=== PATIENT | male | born 1945 | race Two or more races ===

== ENCOUNTER 2023-12-25 11:43 | Emergency (ER) | payer MEDICARE, SELFPAY ==
--- NOTE | ~2023-12-25 | XR_ITS ---
EXAMINATION: XR LUMBOSACRAL SPINE CLINICAL INFORMATION: Low back pain COMPARISON: None available. TECHNIQUE: Three views of the lumbosacral spine. FINDINGS: There are 5 nonrib-bearing lumbar type vertebra. No evidence of acute fracture or malalignment. Straightening of usual lumbar lordosis. Vertebral body heights are maintained. Multilevel degenerative disc space height loss, moderate at L4-5 and mild at L3-4. Mild mid/lower lumbar facet arthropathy. Soft tissues are unremarkable. XR/XR lumbar spine 2-3V IMPRESSION: Mild to moderate multilevel degenerative lumbar spondylosis, most pronounced at L4-5. Electronically signed by: Kishan Henry MD 12/25/2023 02:04 PM EDT RP
--- NOTE | ~2023-12-25 | XR_ITS ---
EXAMINATION: XR ABDOMEN KUB CLINICAL INDICATION: Constipation, pain COMPARISON: None available. TECHNIQUE: AP view of the abdomen. FINDINGS: The bowel gas pattern is normal with no evidence of ileus or obstruction. Moderate a large colonic stool burden. No unusual soft tissue calcifications are noted. Metallic fiducial markers overlie the lower pelvis. XR/XR KUB IMPRESSION: Nonobstructive bowel gas pattern with moderate to large colonic stool burden. Electronically signed by: Kishan Henry MD 12/25/2023 02:06 PM EDT
[2023-12-25 11:53] VITALS: BP 114/67; PULSE 49; RESP 16; TEMP 35.9; O2SAT 97; BMI 25.8
--- NOTE | 2023-12-25 11:58 | ED_ITS ---
HPI - General Adult General Chief complaint: General Medical Stated complaint: pain in back Time Seen by Provider: 12/25/23 12:08 Source: patient, family, RN notes reviewed and old records reviewed Mode of arrival: ambulatory History of Present Illness ED Provider: Marta Roach PA-C HPI narrative: 78-year-old male with no significant past medical history presenting to ED with complaining of low back pain and bloody/dark/black stools x 1 month. Recently tested positive for Lyme disease, currently on Doxycycline reports mild constipation last BM this AM. Reports mild lightheadedness. Denies known back injury, trauma or fall, incontinence/retention, hematuria, dysuria, flank pain, abdominal pain, nausea/vomiting, fever. Denies taking anticoagulation Related Data Previous Rx's ?Medication ?Instructions ?Recorded acetaminophen 500 mg tablet 500 mg PO Q6H PRN fever or pain 12/25/23 (Tylenol Extra Strength) #14 tabs cyclobenzaprine 5 mg tablet 5 mg PO Q8H PRN pain (scale score 12/25/23 7-10) 5 days #14 tabs lidocaine 5 % topical patch 1 patch topical DAILY PRN pain #30 12/25/23 (Lidoderm) ea Allergies Allergy/AdvReac Type Severity Reaction Status Date / Time No Known Allergies Allergy Verified 12/25/23 11:58 Review of Systems 2 Review of Systems: Yes all other systems are reviewed and are negative Constitutional: Constitutional: Reports as per HPI Neurologic: Denies Sensory deficit (Neuro) [facility] Past Medical History Attestation statement: The following information was validated with the patient. Source: old records reviewed Social History Social History Advance Directives: No Advance Directives Information Provided: No Physical Exam ED Vital Signs: Vital Signs - 24 hr 12/25/23 11:53 12/25/23 14:54 12/25/23 15:16 Temperature 96.7 F L 97.6 F 97.6 F Pulse Rate 49 L 41 L 41 L Respiratory Rate 16 16 16 Blood Pressure 114/67 131/63 131/63 Pulse Oximetry 97 94 94 Oxygen Delivery Method Room Air Room Air BMI result Body Mass Index 25.8 Const General: cooperative, healthy appearing and no acute distress Orientation/consciousness: patient oriented x3 Limitations: no limitations HENMT Head: Yes normal to inspection and Yes atraumatic Ears: hearing grossly normal bilaterally General nose exam: Normal external nose present Face and sinus: Yes normal facial exam Eyes General: appearance normal, both eyes and all related structures EOM: EOMs intact bilaterally Neck Neck: Yes normal visual inspection and Yes no meningeal signs Resp Effort & Inspection: normal respiratory effort and no respiratory distress Cardio Rate: regular rate GI Inspection: Yes normal to inspection Palpation (GI): Soft to palpation, nontender, no guarding and not rigid Rectal Exam - Male: Yes visual inspection normal General: Yes no CVA tenderness Back/Spine/Pelvis Other: No midline cervical/thoracic/lumbar spinous tenderness/step-off or deformity. + bilateral lower lumbar MSK reproducible tenderness. No rash/erythema or ecchymosis Back: no CVA tenderness Skin Rashes: no rashes Wounds: no wounds Neuro Other: Strength intact throughout. No saddle anesthesia. Sensation intact to light touch. Neurovascular intact distally General: patient oriented x3, gait normal, tone normal, moves all extremities, no meningeal signs and no focal motor deficits Cranial nerves: Yes CN's II-XII intact bilaterally Gait exam (Neuro): Normal gait present Motor exam (neuro): 5/5 motor strength present throughout Sensory Exam: No Sensory deficit (Neuro) Extrem General: Yes normal to inspection Course Course Course Narrative: RME performed by Carol Estrada PA-C. Patient is a 78 year old assigned male at presenting to the emergency department with low back pain. Patient states that he has been having low back pain, currently on doxy for lyme. Detailed physical exam and review of systems are deferred to the stone layout marker. Labs ordered. Patient placed back in the waiting room pending room availability and results. -1340--BUN elevated to 25, no priors to compare -UA negative. Occult stool negative -viral studies negative XR KUB IMPRESSION: Nonobstructive bowel gas pattern with moderate to large colonic stool burden. XR lumbar spine 2-3V IMPRESSION: Mild to moderate multilevel degenerative lumbar spondylosis, most pronounced at L4-5. > Results discussed with patient including worrisome signs and symptoms and strict return precautions, and when to return to the emergency department. They verbalized understanding and feel safe for discharge at this time. Medications Administered Discontinued Medications Generic Name Dose Route Start Last Admin Trade Name Freq PRN Reason Stop Dose Admin Polyethylene Glycol 17 gm 12/25/23 14:30 12/25/23 14:50 Polyethylene Glycol 3350 17 Gm Powd.Pack PO 12/25/23 14:31 17 gm ONCE ONE Administration Medical Decision Making Medical Decision Making [facility] Narrative: 78-year-old male with no significant past medical history presenting to ED with complaining of low back pain and bloody/dark/black stools x 1 month. On exam vital signs stable, NAD, nontoxic appearing, abdomen soft/nontender, brown stool noted on rectal. No midline spinous tenderness or red flag symptoms. Ambulating with steady gait. Concern for GI bleed vs hemorrhoids vs MSK back pain/strain. Rule out anemia. Low suspicion for appendicitis/diverticulitis, epidural abscess, cauda equina/cord compression or fracture. Lower suspicion for SBO Plan: Labs, UA, occult stool, pain control Please refer to course for remaining clinical decision making, interpretation of labs/imaging results, and discussions with consultants and/or family members. Differential Diagnosis Differential Diagnoses: The differential diagnosis associated with the presentation includes As above Admission/Observation Consideration of admission/observation: Escalation of care including admission/observation considered Lab Data [facility] Lab Attestation statement: I reviewed the patient's lab results. 12/25/23 12:07 12/25/23 12:07 Labs: Lab Results 12/25/23 12/25/23 12/25/23 Range/Units 12:07 13:14 13:16 WBC 7.0 (4.8-10.8) X10*3/uL RBC 4.87 (4.60-5.80) X10*6/uL Hgb 14.1 (14.0-18.0) g/dl Hct 42.5 (42.0-52.0) % MCV 87.3 (80.0-98.0) fL MCH 29.0 (27.0-33.0) pg MCHC 33.2 (31.0-36.0) g/dl RDW 13.2 (11.0-16.0) % Plt Count 300 (160-400) X10*3/uL MPV 10.1 (9.4-12.4) fL Immature Gran % (Auto) 0.1 (0.0-0.4) % Neut % (Auto) 60.9 (45-73) % Lymph % (Auto) 25.9 (20-40) % [place] % (Auto) 9.8 (2-11) % Eos % (Auto) 2.6 (0-4) % Baso % (Auto) 0.7 (0-2) % Lymph # (Auto) 1.8 (1.2-4.9) X10*3/uL [place] # (Auto) 0.7 (0.1-1.2) X10*3/uL Eos # (Auto) 0.2 (0.0-0.4) X10*3/uL Baso # (Auto) 0.1 (0.0-0.2) X10*3/uL Abs Immat Gran (auto) 0.01 (0.00-0.03) X10*3/uL Absolute Neuts (auto) 4.3 (2.0-8.3) x10*3/uL Absolute Nucleated RBC 0.000 (0.0-0.012) X10*3/uL Nucleated RBC % (auto) 0.0 (0.0-0.2) /100WBC Sodium 140 (135-145) mmol/L Potassium 4.5 (3.3-5.1) mmol/L Chloride 107 (96-108) mmol/L Carbon Dioxide 24 (22-29) mmol/L Anion Gap 14 (12-20) BUN 25 H (9-16) mg/dL Creatinine 0.94 (0.5-1.4) mg/dL Estim Creat Clear Calc 62.5 Estimated GFR > 60 Random Glucose 103 (60-115) mg/dL Calcium 9.7 (8.4-10.2) mg/dL Magnesium 2.2 (1.6-2.6) mg/dL Total Bilirubin 0.9 (0.0-1.0) mg/dL AST 24 (5-37) U/L ALT 30 (0-40) U/L Alkaline Phosphatase 79 (39-117) U/L Total Protein 6.9 (6.5-8.0) g/dL Albumin 4.1 (3.5-5.0) g/dL Lipase 36 (8-78) U/L Urine Color Yellow Urine Appearance Clear Urine pH 6.5 (5.0-9.0) Ur Specific [place] 1.015 (1.005-1.025) Urine Protein Negative (Neg-Trace) mg/dL Urine Glucose (UA) Negative (Negative) mg/dL Urine Ketones Negative (Negative) mg/dL Urine Blood Negative (Negative) Urine Nitrite Negative (Negative) Ur Leukocyte Esterase Negative (Negative) Stool Occult Blood NEGATIVE (NEGATIVE) Influenza Type A (PCR) NEGATIVE (Negative) Influenza Type B (PCR) NEGATIVE (Negative) RSV RNA Qual (PCR) NEGATIVE (Negative) SARS-CoV-2 RNA (RT-PCR) NEGATIVE (Negative) Radiology Impression Discussion of test interpretation with radiology: I have reviewed the radiologist's reading. Independent Historian Clinical information obtained from an independent historian. History obtained from or confirmed by: Spouse External Record Review External record reviewed: Inpatient record, Office record, Outpatient record, Prior outpatient labs, Prior outpatient radiology, Primary care record and Outside ED record Tests considered The following testing was considered but not selected: As above Prescription Management I considered prescription management with: Pain Medication Chronic Conditions Patient?s care impacted by: Other Discharge Plan Discharge Clinical Impression: Constipation, DDD (degenerative disc disease), lumbar Patient Disposition: Home, Self-Care Instructions: Constipation (DC), Back Pain (ED) Additional Instructions: Your x-ray shows some constipation. No obstruction You also have some degenerative changes of your low back Your blood work is reassuring, your stool was negative for blood you tested negative for COVID, flu, RSV Flexeril is a muscle relaxer, take at night as it makes you drowsy, do not drive, drink alcohol, or operate machinery while taking it Lidoderm patches are numbing patches, apply to painful area In addition take Tylenol at home If symptoms persist or worsen, pain becomes unbearable, you developed urinary retention or incontinence, or weakness return to the ED PLEASE FOLLOW-UP WITH GASTROENTEROLOGY, CALL TO MAKE AN APPOINTMENT Prescriptions: New lidocaine [Lidoderm] 5 % adhesive patch,medicated 1 patch topical DAILY MDD remove after 12 hours PRN (Reason: pain) Qty: 30 0RF Rx Instructions: leave on most painful area for up to 12 hrs cyclobenzaprine 5 mg tablet 5 mg PO Q8H PRN (Reason: pain (scale score 7-10)) 5 Days Qty: 14 0RF acetaminophen [Tylenol Extra Strength] 500 mg tablet 500 mg PO Q6H PRN (Reason: fever or pain) Qty: 14 0RF Referrals: [facility] [Provider Group] Physician,Unknown J [Primary Care Provider] - Interventions: ED Discharge Assessment Last Done: 12/25/23 15:16 Discharge Date/Time: 12/25/23 15:16 Print Language: Urdu
[2023-12-25 12:11] LABS: MANUAL DIFF FLAG NO
[2023-12-25 12:12] LABS: Basophils Absolute Auto 0.1 X10*3/uL (0.0-0.2); Basophils Percent Auto 0.7 % (0-2); Eosinophils Absolute Auto 0.2 X10*3/uL (0.0-0.4); Eosinophils Percent Auto 2.6 % (0-4); Hematocrit 42.5 % (42.0-52.0); Hemoglobin 14.1 g/dl (14.0-18.0); Imm Gran Abs Auto 0.01 X10*3/uL (0.00-0.03); Imm Gran Pct Auto 0.1 % (0.0-0.4); Lymphocytes Absolute Auto 1.8 X10*3/uL (1.2-4.9); Lymphocytes Percent Auto 25.9 % (20-40); Mean Corpuscular HGB Conc 33.2 g/dl (31.0-36.0); Mean Corpuscular Volume 87.3 fL (80.0-98.0); Mean Platelet Volume 10.1 fL (9.4-12.4); Monocytes Absolute Auto 0.7 X10*3/uL (0.1-1.2); Monocytes Percent Auto 9.8 % (2-11); Neutrophils Absolute Auto 4.3 x10*3/uL (2.0-8.3); Neutrophils Percent Auto 60.9 % (45-73); Platelet Count 300 X10*3/uL (160-400); Red Blood Count 4.87 X10*6/uL (4.60-5.80); Red Cell Distribution Width 13.2 % (11.0-16.0)
[2023-12-25 12:28] LABS: Alanine Aminotransferase 30 U/L (0-40); Albumin Level 4.1 g/dL (3.5-5.0); Alkaline Phosphatase 79 U/L (39-117); Anion Gap 14 (12-20); Aspartate Amino Transferase 24 U/L (5-37); Bilirubin Total 0.9 mg/dL (0.0-1.0); Blood Urea Nitrogen 25 mg/dL (9-16); Calcium 9.7 mg/dL (8.4-10.2); Carbon Dioxide 24 mmol/L (22-29); Chloride 107 mmol/L (96-108); Creatinine Clr Calc Pharmacy 62.5; Estimated Glomerular Filt Rate > 60; Glucose Random 103 mg/dL (60-115); Magnesium 2.2 mg/dL (1.6-2.6); Potassium 4.5 mmol/L (3.3-5.1); Sodium 140 mmol/L (135-145); Total Protein 6.9 g/dL (6.5-8.0)
[2023-12-25 12:55] LABS: Influenza A PCR NEGATIVE (Negative); Influenza B PCR NEGATIVE (Negative); Resp Syncy Virus RNA Qual PCR NEGATIVE (Negative); SARS COV2 PCR INHOUSE NEGATIVE (Negative)
[2023-12-25 13:16] LABS: Lipase 36 U/L (8-78)
[2023-12-25 13:23] LABS: Appearance Urine Clear; Color Urine Yellow; Glucose Urine UA Negative (Negative); Leukocyte Esterase Urine Negative (Negative); Nitrite Urine Negative (Negative); PH 6.5 (5.0-9.0); Specific Gravity - Urine 1.015 (1.005-1.025); Urine Blood Negative (Negative); Urine Ketones Negative (Negative); Urine Protein Negative (Neg-Trace)
[2023-12-25 13:26] LABS: OBS Int Ctl Valid YES; OBS1 NEGATIVE (NEGATIVE)
[2023-12-25] MEDS: polyethylene glycoL 3350 17 GM POWD.PACK PO (14:50)
[2023-12-25 14:54] VITALS: BP 131/63; PULSE 41; RESP 16; TEMP 36.4; O2SAT 94
[2023-12-25 15:16] VITALS: BP 131/63; PULSE 41; RESP 16; TEMP 36.4; O2SAT 94
== END 2023-12-25 15:16 | disposition home or self-care (01) ==
PROVIDERS: Physician Assistant; Physician Assistant Medical; Emergency Provider Emergency Medicine Emergency Medical Services
DX: K59.09 Other constipation (principal); M51.36 Other intervertebral disc degeneration, lumbar region; Z03.818 Encounter for observation for suspected exposure to other biological agents ruled out; M54.50 Low back pain, unspecified
CPT/HCPCS: 0241U; 72100; 74018; 80053; 81003; 82272; 83690; 83735; 85025; 99283

== ENCOUNTER 2024-01-20 09:54 | Outpatient (AMB) | payer MEDICARE, SELFPAY ==
--- NOTE | 2024-01-20 09:56 | MHC.OFFVIS ---
Vital Signs 01/20/24 10:06 Height 5 ft 7 in Weight 164 lb 4 oz BMI 25.7 BP 150/72 H Blood Pressure Location Lt brachial Position Sitting Respiration 16 Pulse 48 L Pulse Source Pulse Oximeter Pulse Oximetry (%) 98 Oxygen Delivery Method Room Air Intake Visit Reasons: Back and Knee Pain Intake Note: Patient comes in for initial visit was referred by [facility]. Reports pain 6-7/10. Wet Room Worker Required: Yes Wet Room Worker Services: Wet Room Worker Present Accompanied by: Spouse Allergies No Known Allergies Allergy (Verified 01/20/24 10:05) HPI Comments Details: Rodriguez is very pleasant 78 years old gentleman with minimal understanding of Faroese but mostly Afghan-speaking who presented himself today with complains on pain in the back. He reported this pain started 8 months ago. 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 He reported that he has his pain 8/10 today he reports that seeing backwards hurts more than flexing forward. The most severe pain he has when he is trying to position him self flattened bed. However he reports that he can function normally, can take care for himself, can do activities of daily living, and he can not sleep normally. He reports that the best he feels when he is reclined in bed and resting. 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 Heavy lifting and bending aggravate his pain tremendously and when his pain is very severe and he is desperate he is taking Tylenol. He reports that he does not want to take any pain medications. He had an MRI with [facility] which is not available for my review for today. He never had physical therapy he never had any chiropractic manipulations he never had any injections. His past medical history is significant for prostate problems and history of alcohol abuse 23 years ago he is sober for 23 years. He took for his pain Tylenol only as needed and he never took NSAIDs because he has reported constipation and red blood in the stool. He has an appointment with automotive tire testing supervisor, he probably had colonoscopy 5 years ago, he most likely is due for the colonoscopy again.Past surgical history significant for hernia repair in 2012. He also has a history of amputation of the left great toe secondary to heavy machinery fallen on his extremity. 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 Review of Systems Const All systems reviewed & are unremarkable except as noted in HPI and below ENT Reports Normal hearing present Neuro Reports Normal hearing present, Denies Abnormal speech present and Denies Sensory deficit (Neuro) Physical Exam Vital Signs: Last Vital Signs Pulse 48 L 01/20/24 10:06 Resp 16 01/20/24 10:06 BP 150/72 H 01/20/24 10:06 Pulse Ox 98 01/20/24 10:06 Oxygen Delivery Method Room Air 01/20/24 10:06 BMI result Body Mass Index 25.7 Const General: no acute distress Nutritional Appearance: average body habitus and thin Orientation/consciousness: patient oriented x3 Limitations: language barrier Eyes General: appearance normal, both eyes and all related structures Pupils: Equal, round and reactive pupils present EOM: EOMs intact bilaterally Neck Neck: Yes full ROM Chest Chest palpation & inspection: normal inspection of the chest Resp Effort & Inspection: normal respiratory effort, able to speak in complete sentences, normal respiratory pattern, no audible wheezes and no cough Cardio Jugular venous distension: no JVD GI Inspection: Yes normal to inspection Back/Spine/Pelvis Other: Due to trauma on the left toe unable to stand on the tiptoes so the strength of the bilateral lower extremities were examined while patient is sitting. He exhibits normal very good strength foot dorsiflexion and forward flexion knee flexion and extension as well as hip flexion without any difficulty. He denies any numbness or tingling in bilateral lower extremities. He reports flexing forward aggravates his pain but flexing backwards aggravate his pain the most. Flexing sideways does not aggravate his pain. SLR is negative bilaterally. Stinchfield test is positive on the left. Greg test is positive on the left. Pelvic distraction test is positive on the left. Gaenslen test is positive on the left. SLR is negative bilaterally. Tenderness on palpation in projection of the left sacroiliac joint. No tenderness on palpation in projection of the lumbar spine. No tenderness on palpation in the projection of the sacral bone. No paraspinal tenderness on palpation noted. Neuro General: patient oriented x3 and gait normal Cranial nerves: Yes CN's II-XII intact bilaterally, Yes Equal, round and reactive pupils present, Yes Normal hearing present and Yes Ability to bilaterally elevate shoulders present Speech: No Abnormal speech present Gait exam (Neuro): Normal gait present Motor exam (neuro): 5/5 motor strength present throughout Sensory Exam: No Sensory deficit (Neuro) Extrem General: No pedal edema Psych Speech and movement: Normal speech and movement present Affect: normal affect Attitude: cooperative Thought process: Normal thought process present Thought content: Normal thought content present Insight: Good insight present (Psych) Judgement: Good judgement present (Psych) Assessment & Plan Assessment & Plan (1) Chronic left sacroiliac joint pain: Code(s): M53.3 - Sacrococcygeal disorders, not elsewhere classified; G89.29 - Other chronic pain Category: Medical (2) Sacroiliitis: Code(s): M46.1 - Sacroiliitis, not elsewhere classified Category: Medical (3) Chronic pain syndrome: Code(s): G89.4 - Chronic pain syndrome Category: Medical Plan Mr. Herself Tobin seem to be suffering from left sacroiliac joint pain. Unfortunately he never had any conservative measures to treat his pain. He took Tylenol only as needed and he never took NSAIDs because he has reported constipation and red blood in the stool. He has an appointment with automotive tire testing supervisor, he probably had colonoscopy 5 years ago, he most likely is due for the colonoscopy again. At this time I recommend him to do physical therapy and continued Tylenol. I will see him in 6 weeks in follow-up appointment. We will have him to sign medical information release note and we will obtain MRI report of the lumbar spine however I think the main problem is sacroiliitis. If the patient will not receive any help from physical therapy I will offer him therapeutic sacroiliac joint injection on the left. Patient Instructions: I here by testify that I spent 45 minutes in conversation with this patient as well as planning his care organizing this note. steam press tender online [id number] helped us to maintain conversation in Afghan. Coding Level of Care Code New Pt Level 4 (91285) Diagnoses Chronic left sacroiliac joint pain M53.3; G89.29 Sacroiliitis M46.1 Chronic pain syndrome G89.4
[2024-01-20 10:06] VITALS: BP 150/72; PULSE 48; RESP 16; O2SAT 98; BMI 25.7
== END 2024-01-20 10:53 | disposition home or self-care (01) ==
PROVIDERS: PCP Physician Assistant Medical; Visit Provider Anesthesiology
DX: M53.3 Sacrococcygeal disorders, not elsewhere classified (principal); G89.29 Other chronic pain; M46.1 Sacroiliitis, not elsewhere classified; G89.4 Chronic pain syndrome
CPT/HCPCS: 99204

== ENCOUNTER → 2024-01-20 09:54 | Outpatient (BNVA) | payer MEDICARE, SELFPAY | PROVIDERS: PCP Physician Assistant Medical; Visit Provider Anesthesiology | DX: M53.3 Sacrococcygeal disorders, not elsewhere classified (principal); M46.1 Sacroiliitis, not elsewhere classified; G89.29 Other chronic pain | CPT/HCPCS: 99202 ==

== ENCOUNTER 2024-03-15 10:43 | Outpatient (REF) | payer MEDICAID, SELFPAY ==
[2024-03-15 12:18] LABS: Anion Gap 14 (12-20); Blood Urea Nitrogen 23 mg/dL (9-16); Calcium 9.5 mg/dL (8.4-10.2); Carbon Dioxide 23 mmol/L (22-29); Chloride 108 mmol/L (96-108); Estimated Glomerular Filt Rate > 60; Glucose Random 100 mg/dL (60-115); Potassium 4.6 mmol/L (3.3-5.1); Sodium 140 mmol/L (135-145)
[2024-03-15 12:36] LABS: TSH reflex Free T4 1.78 uIU/mL (0.32-4.0)
[2024-03-15 12:48] LABS: Folate 13.9 ng/mL (> or = 4.0); Vitamin B12 602 pg/mL (200-900)
== END 2024-03-15 10:44 | disposition home or self-care (01) ==
LOC: HO.LAB 10:43
PROVIDERS: PCP Internal Medicine; Visit Provider Psychiatry & Neurology Neurology
DX: G31.84 Mild cognitive impairment of uncertain or unknown etiology (principal)
CPT/HCPCS: 36415; 80048; 82607; 82746; 84443

== ENCOUNTER 2024-05-26 09:26 | Emergency (ER) | payer OTHER, SELFPAY ==
--- NOTE | ~2024-05-26 | XR_ITS ---
EXAMINATION: XR HAND, RIGHT CLINICAL INFORMATION: cat bite COMPARISON: None available. TECHNIQUE: PA, lateral, and oblique views of the right hand. FINDINGS: Diffuse dorsal soft tissue swelling of the hand and swelling of the fingers. No soft tissue gas or foreign body. No fracture, dislocation, or suspicious bone lesion. No malalignment. Mild/moderate osteoarthritis of the interphalangeal joints. Carpal bones are intact and normally aligned. XR/XR hand RT 2V IMPRESSION: 1. Soft tissue swelling without soft tissue emphysema or radiopaque foreign body. 2. No acute bony abnormality. Electronically signed by: Saad Montes MD 05/26/2024 11:02 AM [facility]
[2024-05-26 09:47] VITALS: BP 179/82; PULSE 58; RESP 19; TEMP 36.6; O2SAT 98; BMI 26.5
[2024-05-26 10:09] LABS: MANUAL DIFF FLAG NO
[2024-05-26 10:10] LABS: Basophils Absolute Auto 0.1 X10*3/uL (0.0-0.2); Basophils Percent Auto 0.7 % (0-2); Eosinophils Absolute Auto 0.3 X10*3/uL (0.0-0.4); Eosinophils Percent Auto 3.5 % (0-4); Hematocrit 43.2 % (42.0-52.0); Hemoglobin 14.5 g/dl (14.0-18.0); Imm Gran Abs Auto 0.02 X10*3/uL (0.00-0.03); Imm Gran Pct Auto 0.3 % (0.0-0.4); Lymphocytes Absolute Auto 1.5 X10*3/uL (1.2-4.9); Lymphocytes Percent Auto 19.1 % (20-40); Mean Corpuscular HGB Conc 33.6 g/dl (31.0-36.0); Mean Corpuscular Hemoglobin 28.8 pg (27.0-33.0); Mean Corpuscular Volume 85.9 fL (80.0-98.0); Mean Platelet Volume 10.1 fL (9.4-12.4); Monocytes Absolute Auto 0.7 X10*3/uL (0.1-1.2); Monocytes Percent Auto 8.5 % (2-11); Neutrophils Absolute Auto 5.2 x10*3/uL (2.0-8.3); Neutrophils Percent Auto 67.9 % (45-73); Platelet Count 300 X10*3/uL (160-400); Red Blood Count 5.03 X10*6/uL (4.60-5.80); Red Cell Distribution Width 12.8 % (11.0-16.0); White Blood Count 7.6 X10*3/uL (4.8-10.8)
[2024-05-26 10:28] LABS: Anion Gap 10 (12-20); Blood Urea Nitrogen 24 mg/dL (9-16); Calcium 9.7 mg/dL (8.4-10.2); Carbon Dioxide 25 mmol/L (22-29); Chloride 107 mmol/L (96-108); Creatinine Clr Calc Pharmacy 69.8; Estimated Glomerular Filt Rate > 60; Glucose Random 98 mg/dL (60-115); Potassium 4.4 mmol/L (3.3-5.1); Sodium 138 mmol/L (135-145)
[2024-05-26 16:18] VITALS: BP 211/92; PULSE 52; RESP 20; TEMP 36.3; O2SAT 96
[2024-05-26 16:35] VITALS: BP 191/95
--- NOTE | 2024-05-26 17:01 | ED_ITS ---
HPI - Animal Bite General Chief Complaint: Animal Bite Stated Complaint: ? R Hand Infection Cat Scratch 05/19/24 Time Seen by Provider: 05/26/24 16:11 Source: patient Mode of arrival: ambulatory Limitations: no limitations History of Present Illness ED Provider: Falguni Clifford NP HPI narrative: Patient is a 78-year-old male right-hand dominant who presents emergency department for evaluation after a cat bite from a stray cat on approximately 1 week ago. Reports that he had opened his garage door he saw the cat present, the cat appeared to be well behaved without erratic behaviors went to pet the cat when suddenly the cat attacked him scratching and biting his right wrist. A few days later on 05/22/2024 he presented to his primary care doctor's office and received ibuprofen as well as a prescription for Augmentin. Reports at this time he was having significant redness and swelling to the hand/wrist which by his account as well as his daughters who was at bedside has decreased significantly. However he apparently received a call from the doctor's office sometime after the visit and was advised that he needed to come to an emergency department for rabies vaccination series. Vaccination status of this cat is unknown. Related Data Home Medications ?Medication ?Instructions ?Recorded ?Confirmed sennosides 8.6 mg-docusate sodium 2 tab PO DAILY constipation 01/20/24 50 mg tablet (Senexon-S) Previous Rx's ?Medication ?Instructions ?Recorded acetaminophen 500 mg tablet 500 mg PO Q6H PRN fever or pain 12/25/23 (Tylenol Extra Strength) #14 tabs cyclobenzaprine 5 mg tablet 5 mg PO Q8H PRN pain (scale score 12/25/23 7-10) 5 days #14 tabs lidocaine 5 % topical patch 1 patch topical DAILY PRN pain #30 12/25/23 (Lidoderm) ea Allergies Allergy/AdvReac Type Severity Reaction Status Date / Time No Known Allergies Allergy Verified 05/26/24 09:52 Review of Systems 2 Review of Systems: Yes all other systems are reviewed and are negative PMFSH Past Medical History Attestation statement: The following information was validated with the patient. Source: old records reviewed Medical History Cat bite of hand Social History Social History Advance Directives: No Advance Directives Information Provided: No Do you have a plan to hurt others: No Plan Physical Exam ED Vital Signs: Vital Signs - 24 hr 05/26/24 09:47 05/26/24 16:18 05/26/24 16:35 Temperature 98 F 97.3 F Pulse Rate 58 52 Respiratory Rate 19 20 Blood Pressure 179/82 H 211/92 H 191/95 H Pulse Oximetry 98 96 Oxygen Delivery Method Room Air BMI result Body Mass Index 26.5 Appearance: Alert.?Oriented to person, place and time. No acute distress.?Normal affect. CVS: Heart sounds normal. Normal heart rate and rhythm.? Pulses normal.?? Respiratory: No respiratory distress.? Lung sounds clear to auscultation bilaterally?? Skin: Skin warm and dry.? Normal skin color.? Extremities: Localized swelling to the dorsum of the right hand, held erythema over the right volar wrist. Full range of motion to the digits and the wrist. 2+ radial pulse. Healed puncture fleming/abrasions to the right wrist. Neuro: Moves all extremities spontaneously. Sensation intact bilaterally. Ambulates with normal steady gait. Medical Decision Making Medical Decision Making MDM Narrative: Patient is a 78-year-old male presents emergency department for evaluation of cat bite to the right wrist sustained 1 week ago, as per HPI he has already been treated with a course of antibiotics the swelling and erythema is significantly improved he has full range of motion, at this time I have a lower suspicion for acute septic joint, he is afebrile without tachycardia or hypotension. At this time no indication for admission for IV antibiotics. No associated lymphadenopathy. Initiating rabies immunoglobulin and receiving first dose of rabies vaccination series, remaining orders have been sent to infusion center, secretary administrative assistant made aware. He was instructed about the entire rabies vaccination series on which days he will need to return for further vaccinations. His tetanus vaccine was updated 2 months ago routinely at a primary care doctor appointment. He offers no additional physical complaints at this time. He arrives hypertensive, states that he took his high blood pressure medication today, at recent visit to PCP BP was not elevated, he does feel anxious at this time, declines additional dosing at this time states he will follow up with his primary care doctor to have a re-evaluation of his blood pressure as he has an upcoming routine visit. Differential Diagnosis Differential Diagnoses: The differential diagnosis associated with the presentation includes (See narrative above) Admission/Observation Consideration of admission/observation: Escalation of care including admission/observation considered (See narrative above) Lab Data MDM Lab Attestation statement: I reviewed the patient's lab results. CBC is without leukocytosis anemia or thrombocytopenia. No electrolyte derangement. No KARMEN 05/26/24 10:05 05/26/24 10:05 Labs: Lab Results 05/26/24 Range/Units 10:05 WBC 7.6 (4.8-10.8) X10*3/uL RBC 5.03 (4.60-5.80) X10*6/uL Hgb 14.5 (14.0-18.0) g/dl Hct 43.2 (42.0-52.0) % MCV 85.9 (80.0-98.0) fL MCH 28.8 (27.0-33.0) pg MCHC 33.6 (31.0-36.0) g/dl RDW 12.8 (11.0-16.0) % Plt Count 300 (160-400) X10*3/uL MPV 10.1 (9.4-12.4) fL Immature Gran % (Auto) 0.3 (0.0-0.4) % Neut % (Auto) 67.9 (45-73) % Lymph % (Auto) 19.1 L (20-40) % [place] % (Auto) 8.5 (2-11) % Eos % (Auto) 3.5 (0-4) % Baso % (Auto) 0.7 (0-2) % Lymph # (Auto) 1.5 (1.2-4.9) X10*3/uL [place] # (Auto) 0.7 (0.1-1.2) X10*3/uL Eos # (Auto) 0.3 (0.0-0.4) X10*3/uL Baso # (Auto) 0.1 (0.0-0.2) X10*3/uL Abs Immat Gran (auto) 0.02 (0.00-0.03) X10*3/uL Absolute Neuts (auto) 5.2 (2.0-8.3) x10*3/uL Absolute Nucleated RBC 0.000 (0.0-0.012) X10*3/uL Nucleated RBC % (auto) 0.0 (0.0-0.2) /100WBC Sodium 138 (135-145) mmol/L Potassium 4.4 (3.3-5.1) mmol/L Chloride 107 (96-108) mmol/L Carbon Dioxide 25 (22-29) mmol/L Anion Gap 10 L (12-20) BUN 24 H (9-16) mg/dL Creatinine 0.87 (0.5-1.4) mg/dL Estim Creat Clear Calc 69.8 Estimated GFR > 60 Random Glucose 98 (60-115) mg/dL Calcium 9.7 (8.4-10.2) mg/dL Independent Historian Clinical information obtained from an independent historian. History obtained from or confirmed by: Spouse and Other (Daughter) External Record Review External record reviewed: Outpatient record Prescription Management I considered prescription management with: Antibiotic (Already prescribed) and Other (See narrative above) Discharge Plan Discharge Clinical Impression: Cat bite Patient Disposition: Home, Self-Care Instructions: Animal Bite (ED), Rabies (ED) Additional Instructions: Rabies follow up with the [facility]: Upon discharge from the ED today, you will be contacted by the Infusion Center to schedule your follow up Rabies vaccines. You will need a total of 3 more injections. If for some reason you do not receive a call, please call the Infusion Center directly at [phone]. Follow up with your primary care provider after completion of the vaccine to have a titer drawn to ensure the vaccines effectiveness. Prescriptions: No Action lidocaine [Lidoderm] 5 % adhesive patch,medicated 1 patch topical DAILY MDD remove after 12 hours PRN (Reason: pain) Qty: 30 0RF Rx Instructions: leave on most painful area for up to 12 hrs cyclobenzaprine 5 mg tablet 5 mg PO Q8H PRN (Reason: pain (scale score 7-10)) 5 Days Qty: 14 0RF acetaminophen [Tylenol Extra Strength] 500 mg tablet 500 mg PO Q6H PRN (Reason: fever or pain) Qty: 14 0RF sennosides-docusate sodium [Senexon-S] 8.6-50 mg tablet 2 tab PO DAILY Referrals: Gem Sidhu MD [Primary Care Provider] - Print Language: [place] Islander
[2024-05-26] MEDS: Rabies Vaccine (PCEC)/PF 1 ML VIAL IM (18:15)
[2024-05-26] MEDS: Rabies Immune Globulin/PF 900 UNIT/3 ML VIAL 1578.5 UNIT IM (18:16)
[2024-05-26 18:27] VITALS: BP 180/90; PULSE 65; RESP 16; TEMP -17.7; TEMP 0; O2SAT 95
== END 2024-05-26 18:28 | disposition home or self-care (01) ==
PROVIDERS: Emergency Provider Emergency Medicine; PCP Internal Medicine
DX: S61.451A Open bite of right hand, initial encounter (principal); W55.01XA Bitten by cat, initial encounter; Y93.89 Activity, other specified; Y92.015 Private garage of single-family (private) house as the place of occurrence of the external cause; Y99.9 Unspecified external cause status; Z20.3 Contact with and (suspected) exposure to rabies; Z23 Encounter for immunization
CPT/HCPCS: 36415; 73120; 80048; 85025; 90375; 90471; 90675; 96372; 99283; 99284

== ENCOUNTER → 2024-05-26 10:50 | Outpatient (BNV) | payer MEDICAID, SELFPAY | PROVIDERS: PCP Internal Medicine; Visit Provider Radiology Diagnostic Radiology | DX: R22.31 Localized swelling, mass and lump, right upper limb (principal); W55.01XA Bitten by cat, initial encounter | CPT/HCPCS: 73120 ==

== ENCOUNTER 2024-05-29 10:50 | Outpatient (REF) | payer OTHER, SELFPAY ==
--- OUTSIDE RECORDS SUMMARY | 2024-05-29 11:54 | XMS_ITS | Encounter Summary ---
Author Organization [facility] Address [address] [place] [address] Care Team Providers Care Epidemiology Intern Name Role Phone Skyla Lynch APRN Primary Care Provider Skyla Lynch APRN Unavailable [phone] Daya Mayers RN Unavailable [phone] Pcp, No Primary Care Provider Unavailabl e Encounter Details Date Type Department Care Team (Late st Contact Info) Description 07/17/2022 Scanned Document [facility] Home Health Services, Scan Social History Tobacco Use Types Packs/Day Years Used Date Smoking Tobacco: Former Cigarettes 1 30 0 11/30/1968 - 11/30/1998 Smokeless Tobacco: Former Quit: 04/29/1999 Alcohol Use Standard Drinks/Week Comments No 0 (1 standard drink = 0.6 oz pur e alcohol) PHQ-2 Answer Date Recorded PHQ-2 Total Score 1 12/15/2019 Sex and Gender Information Value Date Recorded Sex Assigned at Not on file Gender Identity Not on file Sexual Orientation Not on file documented as of this encounter Plan of Treatment Not on file documented as of this encounter Visit Diagnoses Not on filedocumented in this encounter Care Teams Epidemiology Intern Relationship Specialty Start Date End Date Skyla Lynch APRN [address] [place], [place] [address] PCP - General Internal Medicine 09/08/19 06/02/23 Skyla Lynch APRN [address] [place], [place] [id number] PCP - [employer] Medicare Attributed 10/01/20 Pcp, No PCP - General General Medicine 06/03/23 Daya Mayers, RN [address] [place] [address] [facility] Community Middle Card Tender 03/03/21 documented as of this encounter
--- OUTSIDE RECORDS SUMMARY | 2024-05-29 11:54 | XMS_ITS | Encounter Summary ---
Author Organization [facility] Address [address] [place] [address] Care Team Providers Care Networks Computer Consultant Name Role Phone Adrianna Young [employer] Unavailable [phone] Skyla Lynch APRN Primary Care Provider [phone] Skyla Lynch APRN Unavailable [phone] Daya Mayers RN Unavailable [phone] Pcp, No Primary Care Provider Unavailabl e Encounter Details Date Type Department Care Team (Late st Contact Info) Description 11/06/2019 Scanned Document [facility] [address] [place] [phone] Carolin Chinchilla DO [address] [place], [place] [id number] Social History Tobacco Use Types Packs/Day Years Used Date Smoking Tobacco: Former Cigarettes 1 30 0 11/30/1968 - 11/30/1998 Smokeless Tobacco: Former Quit: 04/29/1999 Alcohol Use Standard Drinks/Week Comments No 0 (1 standard drink = 0.6 oz pur e alcohol) Sex and Gender Information Value Date Recorded Sex Assigned at Not on file Gender Identity Not on file Sexual Orientation Not on file COVID-19 Exposure Response Date Recorded In the last month, have you been in contact with someone who was confirmed or suspected to have Coronavirus / COVID-19? Unable to assess 10/30/2019 6:53 AM EDT documented as of this encounter Plan of Treatment Not on file documented as of this encounter Visit Diagnoses Not on filedocumented in this encounter Care Teams Networks Computer Consultant Relationship Specialty Start Date End Date Skyla Lynch APRN [address] [place] [address] PCP - General Internal Medicine 09/08/19 06/02/23 Skyla Lynch APRN [address] [place] [address] PCP - [employer] Medicare Attributed 10/01/20 Pcp, No PCP - General General Medicine 06/03/23 Adrianna Young, [facility] [address] [place] [address] [facility] Community Link Wire Fabric Machine OperatorHarvesting Supervisor 05/11/19 03/02/21 Daya Mayers, RN [address] [facility] [address] [place] [address] [facility] Community Link Wire Fabric Machine Operator 03/03/21 documented as of this encounter
--- OUTSIDE RECORDS SUMMARY | 2024-05-29 11:54 | XMS_ITS | Clinical Summary ---
Author Organization [facility] Address [address] [place] [address] Care Team Providers Care Medical Representative Name Role Phone Skyla Lynch EQUIPMENT MECHANIC SPECIALIST Unavailable [phone] Daya Mayers RN Unavailable [phone] Pcp, No Primary Care Provider Unavailabl e Allergies No known active allergies Medications Medication Sig Dispensed Refills Start Date End Date Status sildenafil (VIAGRA) 100 MG tabletIndications:Ere ctile dysfunction, unspecified erectile dysfunction type Take 1 tablet (100 mg total) by mouth daily as needed for erectile dysfunction. 10 tablet 3 11/30/2018 Active esomeprazole (NexIUM) 40 MG capsuleIndications:H. pylori infection Take 1 capsule (40 mg total) by mouth 2 (two) times a day before meals. 20 capsule 11/09/2019 Active ketoconazole (NIZORAL) 2 % creamIndications:Helen a cruris,Tinea pedis of both feet Apply topically daily. Apply to feet and groin 60 g 3 12/15/2019 Active atorvastatin (LIPITOR) 20 MG tabletIndications:Mix ed hyperlipidemia Take 1 tablet (20 mg total) by mouth daily. 90 tablet 1 12/28/2019 Active Active Problems Problem Noted Date Diagnosed Date Elevated fasting glucose 12/15/2019 Lateral epicondylitis of left elbow 04/29/2017 Overview (04/29/2017): Seen @ [facility] 2016 - brings Xray disc. Onset of pain 4 months ago. 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 No specific injury Tinea cruris 04/29/2017 Immunizations Name Administration Dates Next Due Influenza Inactivated/Split Preservative Free IM 04/20/2018,05/11/2017 Pneumococcal Conjugate 13-Valent 05/20/2017 Pneumococcal Polysaccharide 23-Valent 11/30/2018 Family History Medical History Relation Name Comments No Known Problems Brother 1 No Known Problems Brother 2 Asthma Daughter 1 Autism Daughter 8 Alcohol abuse Father Prostate cancer Maternal Grandfather Heart disease Mother Diabetes Sister 1 Diabetes Sister 2 Relation Name Status Comments Brother 1 Alive Brother 2 Alive Daughter 1 Alive Daughter 2 Alive Daughter 3 Alive Daughter 4 Alive Daughter 5 Alive Daughter 6 Alive Daughter 7 Alive Daughter 8 Alive Father Maternal Grandfather Mother Sister 1 Alive Sister 2 Alive Son 1 Alive Son 2 Alive Son 3 Alive Social History Tobacco Use Types Packs/Day Years [...] on file Sexual Orientation Not on file Last Filed Vital Signs Vital Sign Reading Time Taken Comments Blood Pressure 140/76 12/15/2019 9:52 AM EDT Pulse 57 12/15/2019 9:52 AM EDT Temperature 37.1 ??C (98.8 ??F) 12/15/2019 9:52 AM ED T Respiratory Rate 16 12/15/2019 9:52 AM EDT Oxygen Saturation 92% 09/05/2018 3:50 PM EDT Inhaled Oxygen Concentration - - Weight 79.4 kg (175 lb) 12/15/2019 9:52 AM EDT Height 175.3 cm (5' 9 ) 12/15/2019 9:52 AM EDT Body Mass Index 25.84 12/15/2019 9:52 AM EDT Plan of Treatment Health Maintenance Due Date Last Done Comments DTaP/Tdap/Td Vaccines (1 - Tdap) 12/13/1966 Zoster (Shingles) Vaccine (1 of 2) 12/13/1997 RSV Vaccine 60 years and older and Patients (1 - 1-dose 75+ series) 12/13/2022 Influenza Vaccine 11/18/2023 04/20/2018, 05/11/2017 COVID-19 Vaccine (2023-2 5 season) 2023 Pneumococcal Vaccines 50+ Completed 2018, 05/20/2017 Hepatitis C Virus Screening Completed 12/18/2019 Hepatitis B Vaccines Aged Out No long er eligible based on patient's age to complete this topic Procedures Procedure Name Priority Date/Time Associated Diagnosis Comments HEPATITIS C VIRUS (HCV) ANTIBODY Routine 12/18/2019 9:30 AM EDT Need for hepatitis C screening test from Last 3 Months or Most Recently Relevant to Health Maintenance Results * Hepatitis C Virus (HCV) Antibody (12/18/2019 9:30 AM EDT) Hepatitis C Antibody NON-REACT JOJO NON-REACT JOJO [facility] Hepatitis C Antibody (s/co) 0.01 <1.00 [facility] Comment: HCV antibody was non-reactive. There is no laboratory evidence of HCV infection. In most cases, no further action is required. However, if recent HCV exposure is suspected, a test for HCV RNA (test code 21590) is suggested. For additional information please refer to http://education.Deehubs/faq/JIM84s9 (This link is being provided for informational/ educational purposes only.) Blood specimen (specimen) Heel structure / Unknown 12/18/2019 9:30 AM EDT 12/18/2019 9:30 AM EDT Narrative [facility] - 12/18/2019 11:11 PM EDT FASTING:YES FASTING: YES Resulting Agency Comment Performing Organization Information: ?Site ID: [id number] ?Name: [facility] ?Address: [address] [place] [address], [place] [address] ?Director: Jessica Christianson MD Skyla Lynch APRN LAB BLOOD ORDERABLES [facility] [address] [place] [address], [place] [address] from Last 3 Months or Most Recently Relevant to Health Maintenance Care Teams Medical Representative Relationship Specialty Start Date End Date Skyla Lynch APRN [address] [place] [address] PCP - [employer] Medicare Attributed 10/01/20 Pcp, No PCP - General General Medicine 06/03/23 Daya Mayers, RN [address] [facility] [address] [place], [place] [id number] [facility] Community Interior Design Principal 03/03/21
--- OUTSIDE RECORDS SUMMARY | 2024-05-29 11:54 | XMS_ITS | Clinical Summary ---
Author Organization [facility] Address [address] [place] [address] Care Team Providers Care Flask Carrier Name Role Phone Sheree Braswell MD Primary Care Provide r Allergies No known active allergies Medications Medication Sig Dispensed Refills Start Date End Date Status aspirin EC 81 MG tablet Take 81 mg by mouth daily. 0 Active acetaminophen (TYLENOL) 325 MG tablet Take 2 tablets (650 mg total) by mouth every 6 (six) hours as needed. 30 tablet 0 04/11/2017 Active Social History Tobacco Use Types Packs/Day Years Used Date Smoking Tobacco: Former Smokeless Tobacco: Never Alcohol Use Standard Drinks/Week Comments No 0 (1 standard drink = 0.6 oz pur e alcohol) Sex and Gender Information Value Date Recorded Sex Assigned at Not on file Gender Identity Not on file Sexual Orientation Not on file Last Filed Vital Signs Vital Sign Reading Time Taken Comments Blood Pressure 155/83 04/11/2017 4:42 PM EST Pulse 55 04/11/2017 4:42 PM EST Temperature 36.4 ??C (97.6 ??F) 04/11/2017 4:42 PM ES T Respiratory Rate 18 04/11/2017 4:42 PM EST Oxygen Saturation 99% 04/11/2017 4:42 PM EST Inhaled Oxygen Concentration - - Weight 83 kg (183 lb) 04/11/2017 2:18 PM EST Height 177.8 cm (5' 10 ) 04/11/2017 2:18 PM EST Body Mass Index 26.26 04/11/2017 2:18 PM EST Plan of Treatment Health Maintenance Due Date Last Done Comments Hepatitis C Screening 1945 COVID-19 Vaccine (#1) 06/15/1948 Depression Screening 1959 Preventative Health Evaluation 12/13/1965 DTap / Tdap / Td (1 - Tdap) 12/13/1966 Shingrix-Zoster Vaccine (1 of 2) 12/13/1997 Fall Risk Assessment 12/13/2012 Pneumococcal Vaccine (1 of 1 - PCV) 12/13/2012 RSV Adult > 60+ Yrs or Pregn ant (1 - 1-dose 75+ series) 12/13/2022 Influenza Vaccine (#1) 2023 Hepatitis B Vaccines Aged Out No long er eligible based on patient's age to complete this topic RSV Ped < 20 months Aged Out No longe r eligible based on patient's age to complete this topic Care Teams Flask Carrier Relationship Specialty Start Date End Date Sheree Braswell MD PCP - General Family Medicine 04/11/17
--- OUTSIDE RECORDS SUMMARY | 2024-05-29 11:54 | XMS_ITS | Encounter Summary ---
Author Organization [facility] Address [address] [place] [address] Care Team Providers Care Shag Truck Driver Name Role Phone HectorAdrianna JOB COACH Unavailable [phone] Skyla Lynch APRN Primary Care Provider [phone] Skyla Lynch APRN Unavailable [phone] Daya Mayers RN Unavailable [phone] Pcp, No Primary Care Provider Unavailabl e Encounter Details Date Type Department Care Team (Late st Contact Info) Description 07/04/2020 Scanned Document [address] [phone] Skyla Lynch APRN [address] [place] [address] Social History Tobacco Use Types Packs/Day Years [...] on filedocumented in this encounter Care Teams Shag Truck Driver Relationship Specialty Start Date End Date Skyla Lynch APRN [address] [place] [address] PCP - General Internal Medicine 09/08/19 06/02/23 Skyla Lynch APRN [address] [place] [address] PCP - [employer] Medicare Attributed 10/01/20 Pcp, No PCP - General General Medicine 06/03/23 Adrianna Young, [facility] [address] [place] [address] [facility] Community Probate LawyerBlock Out Machine Operator 05/11/19 03/02/21 Daya Mayers, RN [address] [facility] [address] [place] [address] [facility] Community Probate Lawyer 03/03/21 documented as of this encounter
--- OUTSIDE RECORDS SUMMARY | 2024-05-29 11:54 | XMS_ITS | Encounter Summary ---
Author Organization [facility] Address [address] [place] [address] Care Team Providers Care Wallpaper Printer Helper Name Role Phone Tatiana Begum MD Primary Care Provider [phone] Reason for Visit * Reason Onset Date Comments Provider Call Back 03/30/2024 Encounter Details Date Type Department Care Team (Late st Contact Info) Description 03/30/2024 Telephone Gastroenterology - [place] [address] [place] [address] [phone] Imer Winters, YESSENIA [address] [place] [address] Provider Call Back Social History Tobacco Use Types Packs/Day Years Used Date Smoking Tobacco: Never Assessed Interpersonal Safety Answer Date Record ed Physical Abuse 04/25/2024 Verbal Abuse 04/25/2024 Sex and Gender Information Value Date Recorded Sex Assigned at Male 03/06/2024 11:48 AM EST Legal Sex Male 11:40 AM EDT Gender Identity Male 03/06/2024 11:48 AM EST Sexual Orientation Straight 03/06/2024 11 :48 AM EST documented as of this encounter Progress Notes * Renetta Dixon MA - 04/04/2024 11:17 AM EST results are in your bin for review, thanks. * Luci Del Real - 04/03/2024 3:06 PM EST Patient Yasemin +SHO came in office with copy of Endoscopy from 11/06/2019. Placed on provider folder. * YESSENIA Guzman - 03/31/2024 11:56 AM EST Patient had a colonoscopy at [facility] about 5 years ago. Could you please obtain those records. * Renetta Dixon MA - 03/31/2024 10:23 AM EST Spoke to patient ad they agree to moving forward with the colonoscopy, Please order, thanks. * YESSENIA Guzman - 03/30/2024 12:40 PM EST Patient had been seen for blood in stool and he did fecal occult study which 2 out of 3 were positive for blood in the stool.. The is correct that the rest of the labs were normal however he does have blood in his stool and thus the reason for us suggesting a colonoscopy. Please have them let us know if he was going to move forward with a colonoscopy. * Josselin Fuller - 03/30/2024 9:17 AM EST Patient's calling states Imer wrote in mychart that the patient needs to have a colonoscopy performed. Patient's states she was told labs were abnormal. Please advise if patient should be scheduled. documented in this encounter Plan of Treatment Not on file documented as of this encounter Visit Diagnoses Not on filedocumented in this encounter Care Teams Wallpaper Printer Helper Relationship Specialty Start Date End Date Tatiana Begum MD [address] [place] [address] PCP - General 01/13/24 documented as of this encounter
--- OUTSIDE RECORDS SUMMARY | 2024-05-29 11:54 | XMS_ITS | Encounter Summary ---
Author Organization [facility] Address [address] [place] [address] Care Team Providers Care Combine Mechanic Name Role Phone Tatiana Begum MD Primary Care Provider [phone] Encounter Details Date Type Department Care Team (Late st Contact Info) Description 03/29/2024 Lab Requisition [facility] - Main Lab [address] [facility] [place] [id number] Imer Winters, YESSENIA [address] [facility] [address] [place] [address] Encounter for screening for malignant neoplasm of rectum Social History Tobacco Use Types Packs/Day Years Used Date Smoking Tobacco: Never Assessed Sex and Gender Information Value Date Recorded Sex Assigned at Male 03/06/2024 11:48 AM EST Legal Sex Male 11:40 AM EDT Gender Identity Male 03/06/2024 11:48 AM EST Sexual Orientation Straight 03/06/2024 11 :48 AM EST documented as of this encounter Plan of Treatment Not on file documented as of this encounter Procedures Procedure Name Priority Date/Time Associated Diagnosis Comments OCCULT BLOOD STOOL, IMMUNOASSAY Routine 03/23/2024 12:00 AM EST Encounter for screening for malignant neoplasm of rectum documented in this encounter Results * (ABNORMAL) Occult blood stool, immunoassay (03/23/2024 12:00 AM EST) Fecal Occult Blood by Immunoassay (FIT) #1 Positive(A) Negative 03/29/2024 11:33 AM EST [facility] Comment:03/21/24 Fecal Occult Blood by Immunoassay (FIT) #2 Positive(A) Negative 03/29/2024 11:33 AM EST [facility] Comment:03/22/24 Fecal Occult Blood by Immunoassay (FIT) #3 Negative Negative 03/29/2024 11:33 AM EST [facility] Comment:03/23/24 Stool Rectum structure / Unknown 03/23/2024 03/29/2024 7:42 AM EST us [facility] BLOOD ORDERABLES Final Resu lt [facility] [address] [place] [address], documented in this encounter Visit Diagnoses Diagnosis Encounter for screening for malignant neoplasm of rectum documented in this encounter Care Teams Combine Mechanic Relationship Specialty Start Date End Date Tatiana Begum MD [address] [address] PCP - General 01/13/24 documented as of this encounter
--- OUTSIDE RECORDS SUMMARY | 2024-05-29 11:54 | XMS_ITS | Clinical Summary ---
Author Organization [facility] Address [address] [place] [address] Phone Care Team Providers Care [employer] Roller Name Role Phone Tatiana Begum MD Primary Care Provider [phone] Allergies No known active allergies Medications amLODIPine (NORVASC) 10 mg tablet Take 1 tablet (10 mg total) by mouth 1 (one) time each day. 4 Active polyethylene glycol (PEG) 17 gram/dose oral powder 17 g. 4 Active ibuprofen (ADVIL,MOTRIN) 600 mg tablet 1 tablet (600 mg total). 4 Active Daily-Amadeo, with folic acid, 400 mcg tablet Take 1 tablet by mouth 1 (one) time each day. 4 Active nystatin (MYCOSTATIN) cream Apply 1 Application topically 2 (two) times a day. Active nystatin (MYCOSTATIN) 100,000 unit/gram powder APPLY TO THE AFFECTED AREA(S) BY TOPICAL ROUTE 2 TIMES PER DAY FOR 5-10 DAYS as NEEDE Active sildenafiL (VIAGRA) 25 mg tablet TAKE 1 TABLET BY MOUTH DAILY 1 HOUR BEFORE SEXUAL ACTIVITY Active polyethylene glycol (Golytely) 236-22.74-6.74 -5.86 gram solution Take 4L by mouth once for one dose. May substitue any PEG. Starting at 6PM the night before your procedure drink 1 8oz glasses at your own pace until you complete half of the gallon. Finish 2nd half of the gallon 5 hours before your procedure. 4000 mL Active bisacodyL (DULCOLAX) 5 mg EC tablet Take 2 tablets by mouth right before beginning bowel prep. See instructions provided by the office 2 tablet Active Encounters Date Type Department Care Team Description 04/25/2024 8:45 AM EST Anesthesia Event [facility] Endoscopy [address] [place] [phone] Mina Perkins MD 04/25/2024 7:12 AM EST - 04/25/2024 11:59 PM EST Hospital Encounter [facility] Endoscopy [address] [place] [phone] Alfonso Trinh MD Georgette, Nathaniel, CRNA Melena Discharge Disposition: Home or Self Care 04/21/2024 Telephone Gastroenterology [facility] [address] [phone] Alfonso Trinh MD special procedure (Prep needs to be sent to pharmacy/) 04/04/2024 Telephone Gastroenterology [facility] [address] [phone] Imer Winters PA 04/03/2024 3:23 PM EST - 04/03/2024 11:59 PM EST Hospital Encounter [facility] CT Scan [address] [place] [phone] Mild cognitive impairment of uncertain or unknown etiology Discharge Disposition: Home or Self Care 03/30/2024 Telephone Gastroenterology [facility] [address] [phone] Imer Winters PA Provider Call Back 03/29/2024 Telephone Gastroenterology [facility] [address] [phone] Imer Winters PA 03/29/2024 Lab Requisition [facility] - Main Lab [address] [facility] [employer] [place] [address] Imer Winters PA Encounter for screening for malignant neoplasm of rectum 03/13/2024 Telephone Gastroenterology - [place] [facility] [address] [facility] [address] [place] [address] Imer Winters PA Rectal Bleeding 03/08/2024 7:24 AM EST - 03/08/2024 11:59 PM EST Hospital Encounter [facility] Ultrasound [address] [place] [address] Liver cyst Discharge Disposition: Home or Self Care from Last 3 Months Surgical History Surgery Date Site/Laterality Comments HERNIA REPAIR COLONOSCOPY TOE AMPUTATION Medical History Medical History Date Comments Chronic constipation Hypertension Social History Tobacco Use Types Packs/Day Years Used Date Smoking Tobacco: Unknown Smokeless Tobacco: Never Tobacco Cessation:Counseling Given: Not Answered Alcohol Use Standard Drinks/Week Comments Defer 0 (1 standard drink = 0.6 oz pur e alcohol) Interpersonal Safety Answer Date Record ed Physical Abuse 04/25/2024 Verbal Abuse 04/25/2024 Sex and Gender Information Value Date Recorded Sex Assigned at Male 03/06/2024 11:48 AM EST Legal Sex Male 11:40 AM EDT Gender Identity Male 03/06/2024 11:48 AM EST Sexual Orientation Straight 03/06/2024 11 :48 AM EST Obstetrics History Last Filed Vital Signs Vital Sign Reading Time Taken Comments Blood Pressure 114/77 04/25/2024 9:35 AM EST Pulse 48 04/25/2024 9:35 AM EST Temperature 36.1 ??C (97 ??F) 04/25/2024 7:36 AM EST Respiratory Rate 16 04/25/2024 9:35 AM EST Oxygen Saturation 97% 04/25/2024 9:35 AM EST Inhaled Oxygen Concentration - - Weight 79.8 kg (176 lb) 04/14/2024 2:00 PM EST Height 175.3 cm (5' 9 ) 04/14/2024 2:00 PM EST Body Mass Index 25.99 04/14/2024 2:00 PM EST Plan of Treatment Health Maintenance Due Date Last Done Comments Zoster Vaccines (1 of 2) 12/13/1997 RSV Immunization Patients 60+ Years Old (1 - 1-dose 75+ series) 12/13/2022 COVID-19 Vaccine ( season) 2023 Cholesterol Screening (Lipid Panel) 01/28/2024 Depression Screening 01/28/2024 Hepatitis C Screening 01/28/2024 Medicare Annual Wellness Visit 01/28/2024 Social Influencers of Health Screening 01/28/2024 DTaP,Tdap,and Td Vaccines (3 - Td or Tdap) 10/04/2024 04/05/2024, 05/31/2008 Hypertension/CHF/CAD Annual BMP Blood Test 03/22/2025 03/22/2024, 02/10/2024 Falls Risk Assessment 04/25/2025 04/25/2024 Pneumococcal Vaccine: 50+ Years Completed 11/30/2018, 05/20/2017 Influenza Vaccine Completed 04/05/2024, , 02/15/2008, Additional history exists HIB Vaccines Aged Out No longer eligi ble based on patient's age to complete this topic HPV Vaccines Aged Out No longer eligi ble based on patient's age to complete this topic Hepatitis A Vaccines Aged Out No long er eligible based on patient's age to complete this topic Hepatitis B Vaccines Aged Out No long er eligible based on patient's age to complete this topic IPV Vaccines Aged Out No longer eligi ble based on patient's age to complete this topic MMR Vaccines Aged Out No longer eligi ble based on patient's age to complete this topic Meningococcal ACWY Vaccine Aged Out N o longer eligible based on patient's age to complete this topic Meningococcal B Vacine Aged Out No lo nger eligible based on patient's age to complete this topic RSV Immunization Patients Under 20 months Aged Out No longer eligible based on patient's age to complete this topic Varicella Vaccines Aged Out No longer eligible based on patient's age to complete this topic Procedures Procedure Name Priority Date/Time Associated Diagnosis Comments COLONOSCOPY Routine 04/25/2024 9:14 AM EST Melena TISSUE EXAM Routine 04/25/2024 8:[address] HEAD WO CONTRAST Routine 04/03/2024 3 :41 PM EST Mild cognitive impairment of uncertain or unknown etiology OCCULT BLOOD STOOL, IMMUNOASSAY Routine 03/23/2024 12:00 AM EST Encounter for screening for malignant neoplasm of rectum CBC WITH AUTO DIFFERENTIAL Routine 03/22/2024 9:18 AM EST Colon cancer screening Melena IRON Routine 03/22/2024 9:18 AM EST Colon cancer screening Melena FERRITIN Routine 03/22/2024 9:18 AM EST Colon cancer screening Melena COMPREHENSIVE METABOLIC PANEL Routine 03/22/2024 9:18 AM EST Colon cancer screening CBC AND DIFFERENTIAL Routine 03/22/2024 9:18 AM EST Colon cancer screening Melena US ABDOMEN LIMITED Routine 03/08/2024 8: 29 AM EST Liver cyst from Last 3 Months Results * COLONOSCOPY Anesthesia - MAC; [facility] ENDOSCOPY (04/25/2024 9:14 AM EST) Anatomical Region Laterality Modality Endoscopy 04/25/2024 8:50 AM EST Impressions 04/25/2024 9:15 AM EST - One 4 mm polyp in the transverse colon, removed with ? a cold snare. Resected and retrieved. ? - A single bleeding colonic angiodysplastic lesion. ? Treated with argon plasma coagulation (APC). ? - Internal hemorrhoids. Recommendation: ?- Await pathology results. ? - Repeat colonoscopy in 5 years for surveillance. ? - Repeat colonoscopy PRN for retreatment. Narrative 04/25/2024 9:15 AM EST [facility] GI Patient Name: Rodriguez Rudd Procedure Date: 04/25/2024 8:50 AM Date of : 1945 Age: 78 Gender: Male Note Status: Finalized Attending MD: Alfonso Trinh MD, Procedure Date No Time: 04/25/2024 Procedure: ? Colonoscopy Indications: ? Hematochezia Providers: ? Alfonso Trinh MD Referring MD: ?Alfonso Trinh MD Medicines: ? Monitored Anesthesia Care Complications: ? No immediate complications. Estimated blood loss: ? Minimal. Estimated Blood Loss: ? Estimated blood loss was minimal. Procedure: ? Pre-Anesthesia Assessment: ? - Prior to the procedure, a History and Physical was ? performed, and patient medications and allergies were ? reviewed. The patient is competent. The risks and ? benefits of the procedure and the sedation options and ? risks were discussed with the patient. All questions ? were answered and informed consent was obtained. ? Patient identification and proposed procedure were ? verified by the physician, the nurse, the perfume compounder ? and the laser/electro optics technician in the pre-procedure area in the ? endoscopy suite. Mental Status Examination: alert and ? oriented. Airway Examination: normal oropharyngeal ? airway and neck mobility. Respiratory Examination: ? clear to auscultation. CV Examination: normal. ? Prophylactic Antibiotics: The patient does not require ? prophylactic antibiotics. Prior Anticoagulants: The ? patient has taken no anticoagulant or antiplatelet ? agents. ASA Grade Assessment: III - A patient with ? severe systemic disease. After reviewing the risks and ? benefits, the patient was deemed in satisfactory ? condition to undergo the procedure. The anesthesia ? plan was to use monitored anesthesia care (MAC). ? Immediately prior to administration of medications, ? the patient was re-assessed for adequacy to receive ? sedatives. The heart rate, respiratory rate, oxygen ? saturations, blood pressure, adequacy of pulmonary ? ventilation, and response to care were monitored ? throughout the procedure. The physical status of the ? patient was re-assessed after the procedure. ? After I obtained informed consent, the scope was ? passed under direct vision. Throughout the procedure, ? the patient's blood pressure, pulse, and oxygen ? saturations were monitored continuously. The Olympus ? Colonoscope was introduced through the anus and ? advanced to the cecum, identified by appendiceal ? orifice and ileocecal valve. The colonoscopy was ? performed without difficulty. The patient tolerated ? the procedure well. The quality of the bowel ? preparation was good. Findings: ?The perianal and digital rectal examinations were ? normal. ? A 4 mm polyp was found in the transverse colon. The ? polyp was sessile. The polyp was removed with a cold ? snare. Resection and retrieval were complete. ? Estimated blood loss was minimal. ? A single large patchy angiodysplastic lesion with ? bleeding was found in the rectum. Fulguration to ? ablate the lesion to prevent bleeding by argon plasma ? at 0.3 liters/minute and 20 hernandez was successful. ? Estimated blood loss was minimal. ? Internal hemorrhoids were found during retroflexion. ? The hemorrhoids were Grade II (internal hemorrhoids ? that prolapse but reduce spontaneously). Procedure Code(s): ? --- Professional --- ? 09781, 59, Colonoscopy, flexible; with control of ? bleeding, any method ? 34245, Colonoscopy, flexible; with removal of ? tumor(s), polyp(s), or other lesion(s) by snare ? technique Diagnosis Code(s): ? --- Professional --- ? K55.21, Angiodysplasia of colon with hemorrhage ? D12.3, Benign neoplasm of transverse colon (hepatic ? flexure or splenic flexure) CPT copyright 2020 [employer]. All rights reserved. The codes documented in this report are preliminary and upon medical insurance coder review may be revised to meet current compliance requirements. Alfonso Trinh MD 04/25/2024 9:15:12 AM This report has been signed electronically.Alfonso Trinh MD Number of Addenda: 0 Note Initiated On: 04/25/2024 8:50 AM Scope Withdrawal Time: 0 hours 15 minutes 37 seconds Scope In: 8:52:50 AM Scope Out: 9:11:19 AM ? Endoscopy Department at [facility] - [address] [place] [address], ? [place] [address] Procedure Note Alfonso Trinh MD - 04/25/2024 [facility] GI Patient Name: Rodriguez Rudd Procedure Date: 04/25/2024 8:50 AM Date of : 1945 Age: 78 Gender: Male Note Status: Finalized Attending MD: Alfonso Trinh MD, Procedure Date No Time: 04/25/2024 Procedure: Colonoscopy Indications: Hematochezia Providers: Alfonso Trinh MD Referring MD: Alfonso Trinh MD Medicines: Monitored Anesthesia Care Complications: No immediate complications. Estimated blood loss: Minimal. Estimated Blood Loss: Estimated blood loss was minimal. Procedure: Pre-Anesthesia Assessment: - Prior to the procedure, a History and Physicalwas performed, and patient medications and allergieswere reviewed. The patient is competent. The risks and benefits of the procedure and the sedation optionsand risks were discussed with the patient. Allquestions were answered and informed consent was obtained. Patient identification and proposed procedure were verified by the physician, the nurse, theanesthetist and the laser/electro optics technician in the pre-procedure area in the endoscopy suite. Mental Status Examination: alertand oriented. Airway Examination: normal oropharyngeal airway and neck mobility. Respiratory Examination: clear to auscultation. CV Examination: normal. Prophylactic Antibiotics: The patient does notrequire prophylactic antibiotics. Prior Anticoagulants: The patient has taken no anticoagulant or antiplatelet agents. ASA Grade Assessment: III - A patient with severe systemic disease. After reviewing the risksand benefits, the patient was deemed in satisfactory condition to undergo the procedure. The anesthesia plan was to use monitored anesthesia care (MAC). Immediately prior to administration of medications, the patient was re-assessed for adequacy to receive sedatives. The heart rate, respiratory rate, oxygen saturations, blood pressure, adequacy of pulmonary ventilation, and response to care were monitored throughout the procedure. The physical status ofthe patient was re-assessed after the procedure. After I obtained informed consent, the scope was passed under direct vision. Throughout theprocedure, the patient's blood pressure, pulse, and oxygen saturations were monitored continuously. TheOlympus Colonoscope was introduced through the anus and advanced to the cecum, identified by appendiceal orifice and ileocecal valve. The colonoscopy was performed without difficulty. The patient tolerated the procedure well. The quality of the bowel preparation was good. Findings: The perianal and digital rectal examinations were normal. A 4 mm polyp was found in the transverse colon. The polyp was sessile. The polyp was removed with acold snare. Resection and retrieval were complete. Estimated blood loss was minimal. A single large patchy angiodysplastic lesion with bleeding was found in the rectum. Fulguration to ablate the lesion to prevent bleeding by argonplasma at 0.3 liters/minute and 20 hernandez was successful. Estimated blood loss was minimal. Internal hemorrhoids were found duringretroflexion. The hemorrhoids were Grade II (internal hemorrhoids that prolapse but reduce spontaneously). Procedure Code(s): --- Professional --- 96463, 59, Colonoscopy, flexible; with control of bleeding, any method 92658, Colonoscopy, flexible; with removal of tumor(s), polyp(s), or other lesion(s) by snare technique Diagnosis Code(s): --- Professional --- K55.21, Angiodysplasia of colon with hemorrhage D12.3, Benign neoplasm of transverse colon (hepatic flexure or splenic flexure) CPT copyright 2020 [employer]. All rights reserved. The codes documented in this report are preliminary and upon medical insurance coder reviewmay be revised to meet current compliance requirements. Alfonso Trinh MD 04/25/2024 9:15:12 AM This report has been signed electronically.Alfonso Trinh MD Number of Addenda: 0 Note Initiated On: 04/25/2024 8:50 AM Scope Withdrawal Time: 0 hours 15 minutes 37 seconds Scope In: 8:52:50 AM Scope Out: 9:11:19 AM Endoscopy Department at [facility] - [address] [place] [phone] IMPRESSION: - One 4 mm polyp in the transverse colon, removed with a cold snare. Resected and retrieved. - A single bleeding colonic angiodysplastic lesion. Treated with argon plasma coagulation (APC). - Internal hemorrhoids. Recommendation: - Await pathology results. - Repeat colonoscopy in 5 years for surveillance. - Repeat colonoscopy PRN for retreatment. Alfonso Trinh MD GI~PROCEDURE ORDERABLES Fin al Result * Tissue exam (04/25/2024 8:58 AM EST) Final Diagnosis Transverse Colon, polyp x1-biopsy: -TUBULAR ADENOMA 04/26/2024 9:[address] [facility] Gross Description A. Large Intestine, Transverse Colon, polyp x1: Labeled trans polyp x 1 . Received in formalin is a 1.1 cm irregular moon mucosal tissue fragment which is inked blue, longitudinally bisected, wrapped in paper, and entirely submitted in one cassette, two pieces, multiple levels on one slide. MEELINA 04/26/2024 9:[address] [facility] Disclaimer Unless otherwise specified, all tissue is 10% NB formalin fixed and paraffin embedded. 04/26/2024 9:44 AM EST [facility] Tissue Transverse colon structure / Unknown 04/25/2024 8:58 AM EST 04/25/2024 11:18 AM EST us Alfonso Trinh MD LAB PATHOLOGY ORDERABLES Fi nal Result [facility] ([facility]) [facility] [address] [place] [address], [place] [phone] * CT Head wo Contrast (04/03/2024 3:41 PM EST) Anatomical Region Laterality Modality Head and Neck Computed Tomogra phy 04/05/2024 9:50 AM EST Impressions 04/05/2024 9:53 AM EST Soft tissue mass in the posterior fossa suspicious for pituitary lesion. Recommend MRI brain with and without contrast. Rest of the CT brain is unremarkable. -------- FINAL REPORT -------- Dictated By: Tariq Mcghee Dictated Date: 04/05/2024 09:50 ET Assigned Physician: Tariq Mcghee Reviewed and Electronically Signed By: Tariq Mcghee Signed Date: 04/05/2024 09:53 ET Workstation ID: [id number] Transcribed By: Self Edit Transcribed Date: 04/05/2024 09:50 ET Narrative 04/05/2024 9:53 AM EST Examination: CT brain without contrast. CLINICAL INDICATION: Mild cognitive impairment of uncertain etiology. COMPARISON: None. TECHNIQUE: 2.5 mm thin axial and reformatted 3 mm thin sagittal and coronal images of brain were obtained without contrast. Dose 1070. FINDINGS: There is no acute intra-axial, extra-axial bleed, masses, collection midline shift. No acute infarction or lesion. There is no edema. There is nonspecific dural calcification right frontal convexity the lateral ventricles are asymmetrical but mildly enlarged. No abnormality seen in the posterior fossa. There is moderate fullness of the pituitary fossa suspicious for underlying lesion. Bone windows reveal no calvarial abnormality. The paranasal sinuses and mastoid air cells are well-aerated. Procedure Note Tariq Mcghee MD - 04/05/2024 Examination: CT brain without contrast. CLINICAL INDICATION: Mild cognitive impairment of uncertain etiology. COMPARISON: None. TECHNIQUE: 2.5 mm thin axial and reformatted 3 mm thin sagittal andcoronal images of brain were obtained without contrast. Dose 1070. FINDINGS: There is no acute intra-axial, extra-axial bleed, masses,collection midline shift. No acute infarction or lesion. There is noedema. There is nonspecific dural calcification right frontal convexitythe lateral ventricles are asymmetrical but mildly enlarged. Noabnormality seen in the posterior fossa. There is moderate fullness of thepituitary fossa suspicious for underlying lesion. Bone windows reveal nocalvarial abnormality. The paranasal sinuses and mastoid air cells arewell- aerated. IMPRESSION: Soft tissue mass in the posterior fossa suspicious for pituitary lesion.Recommend MRI brain with and without contrast. Rest of the CT brain is unremarkable. -------- FINAL REPORT -------- Dictated By: Tariq Mcghee Dictated Date: 04/05/2024 09:50 ET Assigned Physician: Tariq Mcghee Reviewed and Electronically Signed By: Tariq Mcghee Signed Date: 04/05/2024 09:53 ET Workstation ID: [id number] Transcribed By: Self Edit Transcribed Date: 04/05/2024 09:50 ET Bobbi Vega MD IM CT PROCEDURES Final R esult * (ABNORMAL) Occult blood stool, immunoassay (03/23/2024 12:00 AM EST) Fecal Occult Blood by Immunoassay (FIT) #1 Positive(A) Negative 03/29/2024 11:[address] [facility] Comment:03/21/24 Fecal Occult Blood by Immunoassay (FIT) #2 Positive(A) Negative 03/29/2024 11:[address] [facility] Comment:03/22/24 Fecal Occult Blood by Immunoassay (FIT) #3 Negative Negative 03/29/2024 11:[address] [facility] Comment:03/23/24 Stool Rectum structure / Unknown 03/23/2024 03/29/2024 7:42 AM EST us Imer CASAS LAB BLOOD ORDERABLES Final Resu lt [facility] [address] [place] [address], * (ABNORMAL) CBC auto differential (03/22/2024 9:18 AM EST) WBC 6.2 4.8 - 10.8 K/mcL LAB HEMETOLOGY METHOD 03/22/2024 2:23 PM [facility] RBC 5.00 4.50 - 5.50 M/mcL LAB HEMETOLOGY METHOD 03/22/2024 2:23 PM [facility] Hemoglobin 14.1 13.5 - 17.5 g/dL LAB HEMETOLOGY METHOD 03/22/2024 2:23 PM [facility] Hematocrit 45.0 42.0 - 54.0 % LAB HEMETOLOGY METHOD 03/22/2024 2:23 PM [facility] MCV 90.9 79.0 - 98.0 FL LAB HEMETOLOGY METHOD 03/22/2024 2:23 PM [facility] MCH 28.5 27.0 - 32.0 pcg LAB HEMETOLOGY METHOD 03/22/2024 2:23 PM [facility] MCHC 31.3(L) 32.0 - 37.0 g/dL LAB HEMETOLOGY METHOD 03/22/2024 2:23 PM [facility] RDW 13.3 11.0 - 15.0 % LAB HEMETOLOGY METHOD 03/22/2024 2:23 PM [facility] Platelets 270 130 - 400 K/mcL LAB HEMETOLOGY METHOD 03/22/2024 2:23 PM [facility] MPV 11.4(H) 7.0 - 11.0 FL LAB HEMETOLOGY METHOD 03/22/2024 2:23 PM [facility] NRBC 0.0 <1.0 % LAB HEMETOLOGY METHOD 03/22/2024 2:23 PM [facility] NRBC Absolute 0.00 <0.10 K/mcL LAB HEMETOLOGY METHOD 03/22/2024 2:23 PM [facility] Neutrophils Relative 60.2 % LAB HEMETOLOGY METHOD 03/22/2024 2:23 PM [facility] Lymphocytes Relative 25.3 % LAB HEMETOLOGY METHOD 03/22/2024 2:23 PM [facility] Monocytes Relative 10.0 % LAB HEMETOLOGY METHOD 03/22/2024 2:23 PM [facility] Eosinophils Relative 3.4 % LAB HEMETOLOGY METHOD 03/22/2024 2:23 PM [facility] Basophils Relative 0.8 % LAB HEMETOLOGY METHOD 03/22/2024 2:23 PM [facility] Immature Granulocytes Relative 0.3 % LAB HEMETOLOGY METHOD 03/22/2024 2:23 PM [facility] Neutrophils Absolute 3.71 1.50 - 7.00 K/mcL LAB HEMETOLOGY METHOD 03/22/2024 2:23 PM [facility] Lymphocytes Absolute 1.56 1.00 - 5.00 K/mcL LAB HEMETOLOGY METHOD 03/22/2024 2:23 PM [facility] Monocytes Absolute 0.62 0.20 - 1.00 K/mcL LAB HEMETOLOGY METHOD 03/22/2024 2:23 PM [facility] Eosinophils Absolute 0.21 0.00 - 0.50 K/mcL LAB HEMETOLOGY METHOD 03/22/2024 2:[address] [facility] Basophils Absolute 0.05 0.00 - 0.20 K/[facility] LAB HEMETOLOGY METHOD 03/22/2024 2:[address] [facility] Immature Granulocytes Absolute 0.02 0.00 - 0.03 K/[facility] LAB HEMETOLOGY METHOD 03/22/2024 2:[address] [facility] Blood Venous blood specimen / Unknown Venipuncture / Unknown 03/22/2024 9:18 AM EST 03/22/2024 9:18 AM EST us Imer CASAS LAB BLOOD ORDERABLES Final Resu lt Performing Organization Address City/[facility]/ZIP Co de Phone Number [facility] [address] [place] [address], [place] [phone] * Iron (03/22/2024 9:18 AM EST) Iron 70 50 - 160 mcg/dL LAB CHEMISTRY METHOD 03/22/2024 3:[address] [facility] Blood Venous blood specimen / Unknown Venipuncture / Unknown 03/22/2024 9:18 AM EST 03/22/2024 9:18 AM EST us Imer CASAS LAB BLOOD ORDERABLES Final Resu lt [facility] [address] [place] [address], [place] [phone] * Ferritin (03/22/2024 9:18 AM EST) Ferritin 46 26 - 388 ng/mL LAB CHEMISTRY METHOD 03/22/2024 3:18 PM [facility] [facility] Blood Venous blood specimen / Unknown Venipuncture / Unknown 03/22/2024 9:18 AM EST 03/22/2024 9:18 AM EST us Imer [facility] BLOOD ORDERABLES Final Resu lt [facility] [address] [place] [address], [place] [phone] * (ABNORMAL) Comprehensive metabolic panel (03/22/2024 9:18 AM EST) Sodium 140 133 - 145 mmol/L LAB CHEMISTRY METHOD 03/22/2024 3:[address] [facility] Potassium 5.1 3.5 - 5.5 mmol/L LAB CHEMISTRY METHOD 03/22/2024 3:18 PM [facility] Chloride 108 96 - 110 mmol/L LAB CHEMISTRY METHOD 03/22/2024 3:18 PM [facility] CO2 26 21 - 32 mmol/L LAB CHEMISTRY METHOD 03/22/2024 3:18 PM [facility] Anion Gap 6 3 - 11 LAB CHEMISTRY METHOD 03/22/2024 3:18 PM [facility] Glucose 101(H) 70 - 100 mg/dL LAB CHEMISTRY METHOD 03/22/2024 3:18 PM [facility] BUN 27(H) 5 - 25 mg/dL LAB CHEMISTRY METHOD 03/22/2024 3:18 PM [facility] Creatinine 1.04 0.70 - 1.30 mg/dL LAB CHEMISTRY METHOD 03/22/2024 3:18 PM [facility] eGFR 74 >=60 mL/min/1. 73m2 LAB CHEMISTRY METHOD 03/22/2024 3:18 PM [facility] Comment:Calculation based on the??Chronic Kidney Disease Epidemiology Collaboration (CKD-EPI) equation refit??without adjustment for race. BUN/Creatinine Ratio 26.0 LAB CHEMISTRY METHOD 03/22/2024 3:18 PM [facility] Calcium 9.8 8.5 - 10.5 mg/dL LAB CHEMISTRY METHOD 03/22/2024 3:18 PM [facility] AST (SGOT) 16 10 - 42 unit/L LAB CHEMISTRY METHOD 03/22/2024 3:18 PM [facility] ALT (SGPT) 31 10 - 60 unit/L LAB CHEMISTRY METHOD 03/22/2024 3:18 PM [facility] Alkaline Phosphatase 103 42 - 121 unit/L LAB CHEMISTRY METHOD 03/22/2024 3:18 PM [facility] Total Protein 6.9 6.0 - 8.0 g/dL LAB CHEMISTRY METHOD 03/22/2024 3:18 PM [facility] Albumin 3.9 3.2 - 5.0 g/dL LAB CHEMISTRY METHOD 03/22/2024 3:18 PM [facility] Total Bilirubin 0.5 0.0 - 1.4 mg/dL LAB CHEMISTRY METHOD 03/22/2024 3:18 PM [facility] Blood Venous blood specimen / Unknown Venipuncture / Unknown 03/22/2024 9:18 AM EST 03/22/2024 9:18 AM EST us Imer [facility] BLOOD ORDERABLES Final Resu lt [facility] [address] [place] [address], * [place] Abdomen Limited (03/08/2024 8:29 AM EST) Anatomical Region Laterality Modality Body Ultrasound 03/08/2024 9:19 AM EST Impressions 03/08/2024 9:26 AM EST The study was performed as a limited abdomen ultrasound including the right upper quadrant. ??Specifically the spleen and left kidney were not examined. There is a small cyst in the left lobe of the liver with no suspicious features. There is a 0.7 cm cyst in the central mid right kidney. Direct comparison with any previous studies necessary. Reportedly 2 hypodense lesions in the right kidney were demonstrated on outside CT. ??The reported 0.6 cm lesion in the upper pole was not demonstrated on the current study. ??No suspicious findings in the upper right kidney on the current ultrasound. The left kidney was not examined. No etiology for right upper quadrant pain demonstrated. ??Specifically no cholelithiasis or biliary dilation -------- FINAL REPORT -------- Dictated By: Preston Vizcaino Dictated Date: 03/08/2024 09:19 ET Assigned Physician: Preston Vizcaino Reviewed and Electronically Signed By: Preston Vizcaino Signed Date: 03/08/2024 09:26 ET Workstation ID: [id number] Transcribed By: Self Edit Transcribed Date: 03/08/2024 09:19 ET Narrative 03/08/2024 9:26 AM EST EXAMINATION: ABDOMEN ULTRASOUND, LIMITED CLINICAL INFORMATION: Liver and kidney cysts. ??Right upper quadrant pain COMPARISON: None. TECHNIQUE: Ultrasound of the right upper quadrant FINDINGS: QUALITY: Bowel obscures portions of the pancreatic body and tail. ??Bowel obscures some of the central abdomen PANCREAS: Portions of the pancreatic head and neck were visualized. ??No large abnormality demonstrated ABDOMINAL AORTA/IVC: Portions of the IVC are visualized without a definite abnormality. ??No abdominal aortic aneurysm is demonstrated. ??Some of the aorta was obscured LIVER: The right lobe of the liver measures 15.4 cm. There is a 1.4 cm round nearly anechoic mass with a sharp back wall and posterior enhancement in the left lobe of the liver. ??No suspicious solid components. No other suspicious focal liver lesion BILIARY: The gallbladder is fluid-filled. No cholelithiasis, gallbladder wall thickening, pericholecystic fluid or biliary dilation. COMMON BILE DUCT: The common duct measures 0.4 cm which is within normal limits. GALLBLADDER TENDERNESS: There is no reported tenderness to transducer pressure over the gallbladder. KIDNEYS: The right kidney measures at least 11.4 cm in greatest length. ??There is no dilation of the intrarenal collecting system on the right. ??There is no shadowing calculus. There is a 0.7 cm cyst in the central sinus of the mid right kidney. FLUID: No intraperitoneal fluid demonstrated in the upper abdomen Procedure Note Preston Vizcaino MD - 03/08/2024 EXAMINATION: ABDOMEN ULTRASOUND, LIMITED CLINICAL INFORMATION: Liver and kidney cysts. Right upper quadrant pain COMPARISON: None. TECHNIQUE: Ultrasound of the right upper quadrant FINDINGS: QUALITY: Bowel obscures portions of the pancreatic body and tail. Bowelobscures some of the central abdomen PANCREAS: Portions of the pancreatic head and neck were visualized. Nolarge abnormality demonstrated ABDOMINAL AORTA/IVC: Portions of the IVC are visualized without a definiteabnormality. No abdominal aortic aneurysm is demonstrated. Some of theaorta was obscured LIVER: The right lobe of the liver measures 15.4 cm. There is a 1.4 cm round nearly anechoic mass with a sharp back wall andposterior enhancement in the left lobe of the liver. No suspicious solidcomponents. No other suspicious focal liver lesion BILIARY: The gallbladder is fluid-filled. No cholelithiasis, gallbladderwall thickening, pericholecystic fluid or biliary dilation. COMMON BILE DUCT: The common duct measures 0.4 cm which is within normallimits. GALLBLADDER TENDERNESS: There is no reported tenderness to transducerpressure over the gallbladder. KIDNEYS: The right kidney measures at least 11.4 cm in greatest length. There isno dilation of the intrarenal collecting system on the right. There is noshadowing calculus. There is a 0.7 cm cyst in the central sinus of the mid right kidney. FLUID: No intraperitoneal fluid demonstrated in the upper abdomen IMPRESSION: The study was performed as a limited abdomen ultrasound including theright upper quadrant. Specifically the spleen and left kidney were notexamined. There is a small cyst in the left lobe of the liver with no suspiciousfeatures. There is a 0.7 cm cyst in the central mid right kidney. Direct comparison with any previous studies necessary. Reportedly 2 hypodense lesions in the right kidney were demonstrated onoutside CT. The reported 0.6 cm lesion in the upper pole was notdemonstrated on the current study. No suspicious findings in the upperright kidney on the current ultrasound. The left kidney was not examined. No etiology for right upper quadrant pain demonstrated. Specifically nocholelithiasis or biliary dilation -------- FINAL REPORT -------- Dictated By: Preston Vizcaino Dictated Date: 03/08/2024 09:19 ET Assigned Physician: Preston Vizcaino Reviewed and Electronically Signed By: Preston Vizcaino Signed Date: 03/08/2024 09:26 ET Workstation ID: [id number] Transcribed By: Self Edit Transcribed Date: 03/08/2024 09:19 ET us Imer CASAS IMG US PROCEDURES Final Result from Last 3 Months Insurance [employer] MEDICARE MEDICAID - [place] Care Teams Chocolate Refining Roller Relationship Specialty Start Date End Date Tatiana Begum MD [address] [address] PCP - General 01/13/24
--- OUTSIDE RECORDS SUMMARY | 2024-05-29 11:54 | XMS_ITS | Encounter Summary ---
Author Organization [address] [address] Care Team Providers Care Bar Gauger And Lubricator Tender Name Role Phone Arleen Escalera APRN Primary Care Provider [phone] Adrianna YoungW Unavailable [phone] Pcp, No Primary Care Provider Unavailabl e Skyla Lynch APRN Primary Care Provider [phone] Skyla Lynch APRN Unavailable [phone] Daya Mayers RN Unavailable [phone] Pcp, No Primary Care Provider Unavailabl e Encounter Details Date Type Department Care Team (Late st Contact Info) Description 04/29/2017 Scanned Document [address] [phone] Arleen Escalera APRN [address] [phone] Social History Tobacco Use Types Packs/Day Years Used Date Smoking Tobacco: Former Smokeless Tobacco: Former Quit: 04/29/1999 Alcohol Use [...] on filedocumented in this encounter Care Teams Bar Gauger And Lubricator Tender Relationship Specialty Start Date End Date Arleen Escalera APRN [address] [place] [address] PCP - General Internal Medicine 04/29/17 09/05/19 Pcp, No PCP - General General Medicine 09/07/19 09/07/19 Skyla Lynch APRN [address] [place] [address] PCP - General Internal Medicine 09/08/19 06/02/23 Skyla Lynch APRN [address] [place] [address] PCP - [employer] Medicare Attributed 10/01/20 Pcp, No PCP - General General Medicine 06/03/23 Adrianna Young, [facility] [address] [place] [address] ICP Community Flaker TenderHistoriographer 05/11/19 03/02/21 Daya Mayers, RN [address] [facility] [address] [place], [place] [id number] ICP Community Flaker Tender 03/03/21 documented as of this encounter
--- OUTSIDE RECORDS SUMMARY | 2024-05-29 11:55 | XMS_ITS | Encounter Summary ---
Author Organization [facility] Address [address] [place] [address] Care Team Providers Care Folder Operator Name Role Phone Unknown Primary Care Provider [phone] Arleen Escalera APRN Primary Care Provider [phone] Adrianna YoungW Unavailable [phone] Pcp, No Primary Care Provider Unavailabl e Skyla Lynch APRN Primary Care Provider [phone] Skyla Lynch APRN Unavailable [phone] Daya Mayers RN Unavailable [phone] Pcp, No Primary Care Provider Unavailabl e Encounter Details Date Type Department Care Team (Late st Contact Info) Description 04/28/2017 Scanned Document [address] [phone] Provider, Generic Social History Tobacco Use Types Packs/Day Years Used Date Smoking Tobacco: Never Assessed Sex and Gender Information Value Date Recorded Sex Assigned at Not on file Gender Identity Not on file Sexual Orientation Not on file documented as of this encounter Plan of Treatment Not on file documented as of this encounter Visit Diagnoses Not on filedocumented in this encounter Care Teams Folder Operator Relationship Specialty Start Date End Date Unknown Unknow Provider Address PCP - General 04/08/17 04/28/17 Arleen Escalera APRN [address] [place] [address] PCP - General Internal Medicine 04/29/17 09/05/19 Pcp, No PCP - General General Medicine 09/07/19 09/07/19 Skyla Lynch APRN [address] [place] [address] PCP - General Internal Medicine 09/08/19 06/02/23 Skyla Lynch APRN [address] [place] [address] PCP - [employer] Medicare Attributed 10/01/20 Pcp, No PCP - General General Medicine 06/03/23 Adrianna Young, [facility] [address] [place] [address] ICP Community Outside Sales EngineerPiece Maker 05/11/19 03/02/21 Daya Mayers, RN [address] [facility] [address] [place] [address] ICP Community Outside Sales Engineer 03/03/21 documented as of this encounter
--- OUTSIDE RECORDS SUMMARY | 2024-05-29 11:55 | XMS_ITS | Encounter Summary ---
Author Organization [facility] Address [address] [place] [address] Care Team Providers Care Factory Manager Name Role Phone Arleen Escalera APRN Primary Care Provider [phone] Adrianna YoungW Unavailable [phone] Pcp, No Primary Care Provider Unavailabl e Skyla Lynch APRN Primary Care Provider [phone] Skyla Lynch APRN Unavailable [phone] Daya Mayers RN Unavailable [phone] Pcp, No Primary Care Provider Unavailabl e Encounter Details Date Type Department Care Team (Late st Contact Info) Description 06/23/2019 Telephone [facility] Urologic Surgery [address] [place] [phone] Etelvina Elaine MA [address] [place] [id number] Social History Tobacco Use Types Packs/Day Years [...] on file documented as of this encounter Miscellaneous Notes * Telephone Encounter - Etelvina Briscoe MA - 06/23/2019 8:07 AM EST Pt has not responded to last message. PCP is in [facility], all records from their office are in [facility]. [place] documented in this encounter Plan of Treatment Not on file documented as of this encounter Visit Diagnoses Not on filedocumented in this encounter Care Teams Factory Manager Relationship Specialty Start Date End Date Arleen Escalera APRN [address] [facility] [place] [address] PCP - General Internal Medicine 04/29/17 09/05/19 Pcp, No PCP - General General Medicine 09/07/19 09/07/19 Skyla Lynch APRN [address] [place] [address] PCP - General Internal Medicine 09/08/19 06/02/23 Skyla Lynch APRN [address] [place] [address] PCP - [employer] Medicare Attributed 10/01/20 Pcp, No PCP - General General Medicine 06/03/23 Adrianna Young, [facility] [address] [place] [address] ICP Community Ed ManagerLease Purchase Truck Driver 05/11/19 03/02/21 Daya Mayers, RN [address] [facility] [address] [place] [address] ICP Community Ed Manager 03/03/21 documented as of this encounter
[2024-05-29 12:27] LABS: TSH reflex Free T4 1.52 uIU/mL (0.32-4.0)
[2024-05-30 16:38] LABS: Prolactin 9.3 ng/mL (2.0-18.0)
== END 2024-05-29 10:51 | disposition home or self-care (01) ==
LOC: HO.LAB 10:50
PROVIDERS: Visit Provider Registered Nurse
DX: E23.7 Disorder of pituitary gland, unspecified (principal)
CPT/HCPCS: 36415; 84146; 84443

== ENCOUNTER → 2024-06-09 08:50 | Outpatient (RCR) | payer OTHER, SELFPAY ==
[2024-05-29 10:29] VITALS: BP 158/80; PULSE 54; RESP 20; TEMP 37; O2SAT 97
[2024-05-29] MEDS: Rabies Vaccine (PCEC)/PF 1 ML VIAL IM (10:31)
[2024-06-02 08:58] VITALS: BP 157/87; PULSE 54; RESP 14; TEMP 36.6; O2SAT 98
[2024-06-02] MEDS: Rabies Vaccine (PCEC)/PF 1 ML VIAL IM (09:02)
[2024-06-09 08:44] VITALS: BP 153/72; PULSE 56; RESP 18; TEMP 36.6
[2024-06-09] MEDS: Rabies Vaccine (PCEC)/PF 1 ML VIAL IM (08:46)
== END | disposition home or self-care (01) ==
LOC: HO.INF 05-29 09:58
PROVIDERS: Visit Provider Nurse Practitioner Family
DX: Z20.3 Contact with and (suspected) exposure to rabies (principal); S61.459D Open bite of unspecified hand, subsequent encounter; W55.01XD Bitten by cat, subsequent encounter
CPT/HCPCS: 90471; 90675

== ENCOUNTER 2025-01-17 09:41 | Outpatient (AMB) | payer OTHER, MEDICAID, SELFPAY ==
--- NOTE | 2025-01-17 09:49 | A.OFFVIS_ITS ---
Intake Visit Reasons: 6 week /MCI Allergies No Known Allergies Allergy (Verified 05/26/24 09:52) HPI Comments Details: 79-year-old man with diabetes with pituitary lesion with remote h/o alcohol drinking, normal prolactin level and cognitive difficulties suggestive of mild Alzheimer type dementia. Into was performed with the help of an phlebotomist supervisor/instructor. His reported that he was very forgetful and sometime getting angry. Also after starting donepezil, he was having bad dreams. No visual symptoms or change in his gait. He has not been drinking for decades. [facility] Medical History (Updated 01/17/25 @ 10:10 by Jen Colon MD) Pituitary lesion MCI (mild cognitive impairment) Cat bite of hand Review of Systems Const Details: Forgetfulness and vivid dreams Physical Exam Neuro Other: Mental Status: Alert and oriented to person, place, and time. Normal attention. Normal spontaneous speech, fluency, and comprehension. Cranial Nerves: CN II: Visual mijares full to confrontation, visual acuity intact. CN III, IV, : Pupils equal, round, reactive to light and accommodation. Extraocular movements are normal. CN V: Facial sensation is normal. CN VII: Facial movements symmetrical. CN VIII: Hearing intact to bedside conversation is normal. CN IX, X: Palate elevates symmetrically. CN XI: Shoulder shrug and head turn symmetrical. CN XII: Tongue midline without atrophy or fasciculations. Extrapyramidal: Full facial expressions and blinking. No rigidity. Movements are appropriate with no tremor or abnormality. Speech: Normal; no dysarthria or tremor. Assessment & Plan Assessment & Plan (1) Multifactorial dementia: Comment: MRI brain [facility] in Apr 2024: Scattered WM changes. Pituitary is enlarged and encroaches on the optic chiasma (hyperplasia vs adenoma). 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
--- OUTSIDE RECORDS SUMMARY | 2025-01-17 10:34 | XMS_ITS | Encounter Summary ---
Author Organization [facility] Address [address] [place] [address] Care Team Providers Care Ic Engineer Name Role Phone Unknown Primary Care Provider [phone] Arleen Escalera APRN Primary Care Provider [phone] Adrianna YoungW Unavailable [phone] Pcp, No Primary Care Provider Unavailabl e Skyla Lynch APRN Primary Care Provider [phone] Skyla Lynch APRN Unavailable [phone] Daya Mayers RN Unavailable [phone] Pcp, No Primary Care Provider Unavailabl e Encounter Details Date Type Department Care Team (Late st Contact Info) Description 04/28/2017 Scanned Document [address] [phone] Provider, Generic Social History Tobacco Use Types Packs/Day Years Used Date Smoking Tobacco: Never Assessed Sex and Gender Information Value Date Recorded Sex Assigned at Not on file Legal Sex Male 12:39 PM EST Gender Identity Not on file Sexual Orientation Not on file documented as of this encounter Plan of Treatment Not on file documented as of this encounter Visit Diagnoses Not on filedocumented in this encounter Care Teams Ic Engineer Relationship Specialty Start Date End Date Unknown Unknow Provider Address PCP - General 04/08/17 04/28/17 Arleen Escalera APRN [address] [place] [address] PCP - General Internal Medicine 04/29/17 09/05/19 Pcp, No PCP - General General Medicine 09/07/19 09/07/19 Skyla Lynch APRN [address] [place] [address] PCP - General Internal Medicine 09/08/19 06/02/23 Skyla Lynch APRN [address] [place] [address] PCP - [employer] Medicare Attributed 10/01/20 08/16/24 Pcp, No PCP - General General Medicine 06/03/23 Adrianna Young, [facility] [address] [place] [address] ICP Community Potato Chip SorterTwenty One Dealer 05/11/19 03/02/21 Daya Mayers, RN [address] [facility] [address] [place] [address] ICP Community Potato Chip Sorter 03/03/21 documented as of this encounter
--- OUTSIDE RECORDS SUMMARY | 2025-01-17 10:34 | XMS_ITS | Clinical Summary ---
Author Organization [facility] Address [address] [facility] [address] [place] [address] Phone Care Team Providers Care Software Packaging Engineer Name Role Phone Unavailable Primary Care Provider Unavailabl e Social History Tobacco Use Types Packs/Day Years Used Date Smoking Tobacco: Never Assessed Education Answer Date Recorded Are you interested in more education? Not on socorro e 10/02/2024 Are you concerned about learning? Not on file 10/02/2024 No 10/02/2024 No 10/02/2024 Digital Access Answer Date Recorded No 10/02/2024 No 10/02/2024 Reliable internet access at home? Not on file 10/02/2024 Device with a working camera? Not on file Sex and Gender Information Value Date Recorded Sex Assigned at Not on file Legal Sex Male 8:34 AM EDT Gender Identity Not on file Sexual Orientation Not on file Plan of Treatment Not on file Medical Devices Not on file Additional Source Comments The information contained in this document represents components of the legal health record. It is not the complete legal health record.[facility]
--- OUTSIDE RECORDS SUMMARY | 2025-01-17 10:34 | XMS_ITS | Encounter Summary ---
Author Organization [facility] Address [address] [place] [address] Care Team Providers Care Director Fixed Income Name Role Phone Dajuan Garcia MD Primary Care Provider Encounter Details Date Type Department Care Team (Late st Contact Info) Description 03/29/2024 Lab Requisition [facility] [address] [facility] [address] [place] [phone] Imer Winters, YESSENIA [address] [place] [phone] Encounter for screening for malignant neoplasm of [...] Procedure Name Priority Date/Time Associated Diagnosis Comments FIT OCCULT BLOOD STOOL, IMMUNOASSAY Routine 03/23/2024 12:00 AM EST Encounter for screening for malignant neoplasm of rectum documented in this encounter Results * (ABNORMAL) Occult blood stool, immunoassay (03/23/2024 12:00 AM EST) Fecal Occult Blood by Immunoassay (FIT) #1 Positive(A) Negative 03/29/2024 11:33 AM EST [facility] Comment:03/21/24 Fecal Occult Blood by Immunoassay (FIT) #2 Positive(A) Negative 03/29/2024 11:33 AM EST [facility] Comment:03/22/24 Fecal Occult Blood by Immunoassay (FIT) #3 Negative Negative 03/29/2024 11:33 AM EST [facility] Comment:03/23/24 Stool Rectum structure / Unknown 03/23/2024 03/29/2024 7:42 AM EST us Imer [facility] BLOOD ORDERABLES Final Resu lt [facility] [address] [place] [address], documented in this encounter Visit Diagnoses Diagnosis Encounter for screening for malignant neoplasm of rectum documented in this encounter Care Teams Director Fixed Income Relationship Specialty Start Date End Date Dajuan Garcia MD [address] [place] [phone] PCP - General Family Medicine 06/01/24 documented as of this encounter
--- OUTSIDE RECORDS SUMMARY | 2025-01-17 10:34 | XMS_ITS | Clinical Summary ---
Author Organization [facility] Address [address] [place] [address] Care Team Providers Care Gm Video Name Role Phone Sheree Braswell MD Primary [...] 57 04/11/2017 4:42 PM EST Temperature 36.4 C (97.6 F) 04/11/2017 4:42 PM EST Respiratory Rate 18 04/11/2017 4:42 PM EST [...] 1-dose 75+ series) 12/13/2022 Influenza Vaccine (#1) 2024 Hepatitis B Vaccines Aged Out No long er eligible based on patient's age to complete this topic RSV Ped < 20 months Aged Out No longe r eligible based on patient's age to complete this topic Care Teams Gm Video Relationship Specialty Start Date End Date Sheree Braswell MD PCP - General Family Medicine 04/11/17
--- OUTSIDE RECORDS SUMMARY | 2025-01-17 10:34 | XMS_ITS | Clinical Summary ---
Author Organization [facility] Address [address] [place] [address] Phone Care Team Providers Care Director Of Strategy & Mobile Name Role Phone Dajuan Garcia MD Primary Care Provider [phone] Allergies No known active allergies Medications sildenafiL (VIAGRA) 25 mg tablet TAKE 1 TABLET BY MOUTH DAILY 1 HOUR BEFORE SEXUAL ACTIVITY Active amLODIPine (NORVASC) 5 mg tablet Take 2 tablets (10 mg total) by mouth at bedtime. 06/15/2024 Active donepeziL (ARICEPT) 10 mg tablet Take 1 tablet (10 mg total) by mouth at bedtime. 08/28/2024 Active senna-docusate (PERICOLACE) 8.6-50 mg per tabletIndicatio ns:constipation Take 1 tablet by mouth 2 (two) times a day. 60 each 11 09/29/2024 09/30/19 26 Active Murine Ear 6.5 % otic solution INSTILL 5 DROPS INTO THE LEFT EAR TWICE DAILY FOR 4 DAYS DIRECTED 09/01/2024 Active olmesartan (BENICAR) 40 mg tablet Take 1 tablet (40 mg total) by mouth. 09/01/2024 Active Active Problems Problem Noted Date Diagnosed Date Lumbar spondylosis 10/10/2024 Assessment & Plan (10/10/2024 2:28 PM EDT): The patient reports a history of lower back pain. Denies leg pain. No current lumbar imaging is available, but he will bring copies of previous imaging with results from [facility] and we can review. It is recommended to strengthen core muscles through physical therapy, which can be initiated in a few months post-surgery. The patient will contact the office when ready to start physical therapy, and a prescription will be provided at that time. Mild cognitive impairment with memory loss 10/09 Adenocarcinoma of prostate ([facility] V24, [facility] V28) 10/09/2024 S/P transsphenoidal hypophysectomy ([facility] V24) 09/26/2024 Disorder of pituitary gland, unspecified ([facility] V24) 09/14/2024 Deviated nasal septum 09/14/2024 Enlarged pituitary gland ([facility] V24) Assessment & Plan (10/10/2024 4:47 PM EDT): The patient reports significant improvement postop with minimal headaches rated 1-3/10, is very happy with postop results and states he is feeling well. He has discontinued Tylenol for the past 3 days due to the absence of significant pain. There are no issues with bowel or bladder function, and no CSF rhinorrhea/nasal drainage. He is ambulating well and has no fevers. A follow-up brain MRI will be scheduled for [address] Miranda. If any complications arise before then, he should contact the office immediately. Assessment & Plan (06/01/2024 4:21 PM EST): Patient was seen by Dr. Vega for short-term memory loss (mild cognitive impairment) and on head CT was noted to have enlarged pituitary gland which led to brain MRI with and without contrast. With questioning patient admits to blurry vision left >right eye, most days of the week, a few times a month will get headache but mild. He has noticed his hands/joints have seemed to become more stiff and hard to bend, make a fist. His states she has been buying him the same gloves but this year he mentioned they were too tight, also she always buy shoes size 10.5 but recently he tells her the not fitting well. No galactorrhea. Otherwise states he is currently healthy, they state he has diet-controlled diabetes, no history of KS or stroke, + history of prostate cancer 2 years ago treated with XRT. He just had a follow-up appointment in home visits nurse, Dr. Cuevas, we called for office notes and he was diagnosed with dry macular degeneration and posterior vitreous detachment OU. There is no mention of papilledema or peripheral vision loss. In HPI section, patient was coming in as a new patient on November 2022 for complaints of blurry vision for 2 years treated with artificial tears. Patient had MRI brain with and without contrast 05/17/2024 [facility] that shows enlarged pituitary encroaching on the optic chiasm. No definite cavernous sinus involvement. Suggestion of a nodule, differential includes pituitary hyperplasia versus adenoma. I reviewed MRI images with patient and his . Mr. Rudd has enlarged pituitary gland, he does not recall anyone ordering recent labs, I ordered pituitary labs like growth hormone, Cortisol, prolactin, LH. I will review his imaging and labs with Dr. Miranda to see if she recommends any follow- up imaging or surgery intervention. All questions answered. 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 ADDENDUM 06/01/2024 4:20 PM: Patient with elevated FSH, LH. Still waiting for growth hormone results. I reviewed MRI with Dr. Miranda as well. She wants patient to go for visual field testing. Patient may require surgical intervention. Encounters Date Type Department Care Team Description 11/13/2024 Telephone Neurosurgery [facility] [address] [phone] Carolynn Kang MA 11/13/[address] [phone] Carolynn Kang MA from Last 3 Months Immunizations Immunization Administration Dates Next Due Human Rabies, Chicken Fibrob last Cell Culture, (Rabavert) 06/09/2024,05/29/2024,05/26/2024 Influenza Quadravalent, 0.5m l (Fluad) 65yo and older 04/20/2018,05/11/2017 Influenza Whole 01/09/2009,02/15/2007 Influenza trivalent, with pr eservative (Fluzone; Afluria) 6mo and older 04/05/2024,02/15/2008 Influenza, Unspecified 05/17/2009 Pneumococcal conjugate 13 va lent (Prevnar 13, PCV13) 2mo and older 05/20/2017 Pneumococcal polysaccharide 23 valent (Pneumovax 23) 2yo and older 11/30/2018 Td, Unspecified 05/31/2008 Tdap Tetanus diptheria acell ular pertussis (Boostrix; Adacel) 7yo and older 04/05/2024 Surgical History Surgery Date Site/Laterality Comments HERNIA REPAIR COLONOSCOPY TOE AMPUTATION BRAIN SURGERY 09/26/2024 transsphenoidal hypophysectomy, for resection of pituitary tumor, Savi Linder Medical History Medical History Date Comments Chronic constipation Hypertension Diabetes mellitus ([facility] V24, [facility] V28) Anxiety Dementia ([facility] V24, [facility] V28) slight Cancer ([facility] V24, [facility] V28) prostate Enlarged pituitary gland ([facility] V24) Social History Tobacco Use Types Packs/Day Years Used Date Smoking Tobacco: Never Smokeless Tobacco: Never Tobacco Cessation:Counseling Given: Not Answered Alcohol Use Standard Drinks/Week Comments Defer 0 (1 standard drink = 0.6 oz pur e alcohol) Interpersonal Safety Answer Date Record ed Physical Abuse Unrecognized value 09/26/2024 Verbal Abuse Unrecognized value 09/26/2024 Sex and Gender Information Value Date Recorded Sex Assigned at Male 03/06/2024 11:48 AM EST Legal Sex Male 11:40 AM EDT Gender Identity Male 03/06/2024 11:48 AM EST Sexual Orientation Straight 03/06/2024 11 :48 AM EST Obstetrics History Last Filed Vital Signs Vital Sign Reading Time Taken Comments Blood Pressure 126/57 10/12/2024 9:11 AM EDT Pulse 50 10/12/2024 9:11 AM EDT Temperature 36.8 C (98.2 F) 09/29/2024 2:42 PM EDT Respiratory Rate 15 10/12/2024 9:11 AM EDT Oxygen Saturation 93% 09/29/2024 2:42 PM EDT Inhaled Oxygen Concentration - - Weight 79.8 kg (176 lb) 10/12/2024 9:11 AM EDT Height 175.3 cm (5' 9 ) 10/12/2024 9:11 AM EDT Body Mass Index 25.99 10/12/2024 9:11 AM EDT Plan of Treatment Health Maintenance Due Date Last Done Comments Zoster Vaccines (1 of 2) 12/13/1964 COVID-19 Vaccine (2 - Moderna risk series) 02/07/2021 01/10/2021 RSV Immunization Adult Patients (1 - 1-dose 75+ series) 12/13/2022 Cholesterol Screening (Lipid Panel) 01/28/2024 Hepatitis C Screening 01/28/2024 Medicare Annual Wellness Visit 01/28/2024 Social Influencers of Health Screening 01/28/2024 Depression Screening 04/19/2024 Influenza Vaccine (#1) 2024 , 04/20/2018, 05/11/2017, Additional history exists Falls Risk Assessment 09/29/2025 09/29/2024 DTaP,Tdap,and Td Vaccines (3 - Td or Tdap) 04/05/2034 04/05/2024, 05/31/2008 Pneumococcal Vaccine: 50+ Years Completed 11/30/2018, 05/20/2017 HIB Vaccines Aged Out No longer eligi [...] age to complete this topic Meningococcal B Vaccine Aged Out No l onger eligible based on patient's age to complete this topic RSV Immunization Patients Under 20 months Aged Out No longer eligible based on patient's age to complete this topic Varicella Vaccines Aged Out No longer eligible based on patient's age to complete this topic Medical Devices Implanted Type Area Field Account Manager Device Identifier Shelf Expiration Date Model / Serial / Lot Kit Surgiflo W 2000 Units Ster Lyo - Sna - [id number] Implanted:Qty: 2 on 09/26/2024 by Christine Miranda MD at [facility] Hemostasis N/A: Nose [employer] [id number] 01/16/2026 [id number] / NA / [id number] Duraseal Exact Spine Sealant 5ml W Applicator - Sna - [id number] Implanted:Qty: 1 on 09/26/2024 by Christine Miranda MD at [facility] Hemostasis N/A: Nose [employer] [id number] 03/18/2025 [id number] / [id number] / [id number] Insurance MEDICAID - [place] [facility] MEDIC[facility] ADVANTAGE Advance Directives Documents on File Type Date Recorded 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 Do not modify or discontinue any currently active code status orders. * Full Code - Default Date Activated Date Inactivated Comments 09/26/2024 12:20 PM 09/26/2024 12:31 PM This is or nima is used when code status has not been discussed with the patient, or code status is otherwise unknown/unconfirmed To update the patient's code status, place a code status order. Do not modify or discontinue any currently active code status orders. Healthcare Agents on File Name Relationship Healthcare Agent Relationship Communication Yasemin Perdomo Spouse First Alter coral Health Care Agent [email or web address] Daughter Second Alternate Health Care Agent [email or web address] Director Of Strategy & Mobile Relationship Specialty Start Date End Date Dajuan Garcia MD [address] [place] [phone] PCP - General Family Medicine 06/01/24
--- OUTSIDE RECORDS SUMMARY | 2025-01-17 10:34 | XMS_ITS | Encounter Summary ---
Author Organization [address] [address] Care Team Providers Care Feed Mixer Name Role Phone Arleen Escalera APRN Primary Care Provider [phone] Adrianna Young FISHING BOAT CAPTAIN Unavailable [phone] Pcp, No Primary Care Provider Unavailabl e Skyla Lynch APRN Primary Care Provider [phone] Skyla Lynch APRN Unavailable [phone] Daya Mayers RN Unavailable [phone] Pcp, No Primary Care Provider Unavailabl e Encounter Details Date Type Department Care Team (Late st Contact Info) Description 04/29/2017 Scanned Document [address] [phone] Arleen Escalera APRN [address] [phone] Social History Tobacco Use Types Packs/Day Years [...] on filedocumented in this encounter Care Teams Feed Mixer Relationship Specialty Start Date End Date Arleen Escalera APRN [address] [place] [address] PCP - General Internal Medicine 04/29/17 09/05/19 Pcp, No PCP - General General Medicine 09/07/19 09/07/19 Skyla Lynch APRN [address] [place] [address] PCP - General Internal Medicine 09/08/19 06/02/23 Skyla Lynch APRN [address] [place] [address] PCP - [employer] Medicare Attributed 10/01/20 08/16/24 Pcp, No PCP - General General Medicine 06/03/23 Adrianna Young, [facility] [address] [place] [address] ICP Community Harvesting SupervisorCandy Vendor 05/11/19 03/02/21 Daya Mayers, LANDON [address] [facility] [address] [place] [address] ICP Community Harvesting Supervisor 03/03/21 documented as of this encounter
--- OUTSIDE RECORDS SUMMARY | 2025-01-17 10:34 | XMS_ITS | Encounter Summary ---
Author Organization [facility] Address [address] [place] [address] Care Team Providers Care Human Service Technician Name Role Phone Adrianna Young SOLAR SALES CONSULTANT Unavailable [phone] Skyla Lynch APRN Primary Care Provider [phone] Sklya Lynch APRN Unavailable [phone] Daya Mayers RN Unavailable [phone] Pcp, No Primary Care Provider Unavailabl e Encounter Details Date Type Department Care Team (Late st Contact Info) Description 07/04/2020 Scanned Document [address] [phone] Skyla Lynch, DOREEN [address] [place] [address] Social History Tobacco Use Types Packs/Day Years [...] on filedocumented in this encounter Care Teams Human Service Technician Relationship Specialty Start Date End Date Skyla Lynch APRN [address] [place] [address] PCP - General Internal Medicine 09/08/19 06/02/23 Skyla Lynch APRN [address] [place] [address] PCP - [employer] Medicare Attributed 10/01/20 08/16/24 Pcp, No PCP - General General Medicine 06/03/23 Adrianna Young, [facility] [address] [place] [address] ICP Community Wallpaper ConsultantSenior Mortgage Underwriter 05/11/19 03/02/21 Daya Mayers, RN [address] [place] [facility] [address] [place], [place] [id number] ICP Community Wallpaper Consultant 03/03/21 documented as of this encounter
--- OUTSIDE RECORDS SUMMARY | 2025-01-17 10:34 | XMS_ITS | Clinical Summary ---
Author Organization [facility] Address [address] [place] [address] Care Team Providers Care Pricing Associate Name Role Phone Daya Mayers RN Unavailable [phone] Pcp, No Primary Care Provider Unavailabl e Allergies No known active allergies Medications sildenafil (VIAGRA) 100 MG tabletIndications: Erectile dysfunction, unspecified erectile dysfunction type Take 1 tablet (100 mg total) by mouth daily as needed for erectile dysfunction. 10 tablet 3 9 Active esomeprazole (NexIUM) 40 MG capsuleIndications :H. pylori infection Take 1 capsule (40 mg total) by mouth 2 (two) times a day before meals. 20 capsule 0 Active ketoconazole (NIZORAL) 2 % creamIndications:T inea cruris,Tinea pedis of both feet Apply topically daily. Apply to feet and groin 60 g 3 0 Active atorvastatin (LIPITOR) 20 MG tabletIndications: Mixed hyperlipidemia Take 1 tablet (20 mg total) by mouth daily. 90 tablet 1 0 Active Active Problems Problem Noted Date Diagnosed Date Elevated fasting glucose 12/15/2019 Lateral epicondylitis of left elbow 04/29/2017 Overview (04/29/2017): Seen @ [facility] 2016 - brings Xray disc. Onset of pain 4 months ago. 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 No specific injury Tinea cruris 04/29/2017 Immunizations Immunization Administration Dates Next Due Influenza Inactivated/Split Preservative [...] 57 12/15/2019 9:52 AM EDT Temperature 37.1 C (98.8 F) 12/15/2019 9:52 AM EDT Respiratory Rate 16 12/15/2019 9:52 AM EDT Oxygen Saturation 92% 09/05/2018 3:50 PM EDT Inhaled Oxygen Concentration - - Weight 79.4 kg (175 lb) 12/15/2019 9:52 AM EDT Height 175.3 cm (5' 9 ) 12/15/2019 9:52 AM EDT Body Mass Index 25.84 12/15/2019 9:52 AM EDT Plan of Treatment Health Maintenance Due Date Last Done Comments Advance Care Planning 1945 DTaP/Tdap/Td Vaccines (1 - Tdap) 12/13/1966 Zoster (Shingles) Vaccine (1 of 2) 12/13/1997 RSV Vaccine 60 years and older and Patients (1 - 1-dose 75+ series) 12/13/2022 Influenza Vaccine 11/17/2024 04/05/2024, , 04/20/2018, Additional history exists COVID-19 Vaccine ( season) 2024 Pneumococcal Vaccines 50+ Completed 11/30/2018, 04/2017 Hepatitis C Virus Screening Completed 12/18/2019 Hepatitis [...] Hepatitis C Antibody NON-REACT JOJO NON-REACT JOJO [facility] Hepatitis C Antibody (s/co) 0.01 <1.00 [facility] Comment: HCV antibody was non-reactive. There is no laboratory evidence of HCV infection. In most cases, no further action is required. However, if recent HCV exposure is suspected, a test for HCV RNA (test code 23247) is suggested. For additional information please refer to http://education.[employer]/faq/IDE29u4 (This link is being provided for informational/ educational purposes only.) Blood specimen (specimen) Heel structure / Unknown 12/18/2019 9:30 AM EDT 12/18/2019 9:30 AM EDT Narrative [facility] - 12/18/2019 11:11 PM EDT FASTING:YES FASTING: YES Resulting Agency Comment Performing Organization Information: Site ID: [id number] Name: [employer] [facility] [employer] Address: [address] [place] [address], [place] [address] Director: Jessica Christianson MD Skyla Lynch APRN LAB BLOOD ORDERABLES Final R esult [facility] [address], [place] [address] from Last 3 Months or Most Recently Relevant to Health Maintenance Insurance Care Teams Pricing Associate Relationship Specialty Start Date End Date Pcp, No PCP - General General Medicine 06/03/23 Daya Mayers, LANDON [address] [place] [address] [facility] Community Log Brander 03/03/21
--- OUTSIDE RECORDS SUMMARY | 2025-01-17 10:34 | XMS_ITS | Encounter Summary ---
Author Organization [facility] Address [address] [place] [address] Care Team Providers Care Spinning Lathe Operator Hydraulic Name Role Phone Skyla Lynch APRN Primary Care Provider [phone] Skyla Lynch APRN Unavailable [phone] Daya Mayers RN Unavailable [phone] Pcp, No Primary Care Provider Unavailabl e Encounter Details Date Type Department Care Team (Late st Contact Info) Description 07/17/2022 Scanned Document [facility] Home Health Services, Scan [...] on filedocumented in this encounter Care Teams Spinning Lathe Operator Hydraulic Relationship Specialty Start Date End Date Skyla Lynch APRN [address] [place] [address] PCP - General Internal Medicine 09/08/19 06/02/23 Skyla Lynch APRN [address] [facility] [place] [address] PCP - [employer] Medicare Attributed 10/01/20 08/16/24 Pcp, No PCP - General General Medicine 06/03/23 Daya Mayers, RN [address] [facility] [address] [place] [address] [facility] Community Clinical Pharmacy Coordinator 03/03/21 documented as of this encounter
--- OUTSIDE RECORDS SUMMARY | 2025-01-17 10:34 | XMS_ITS | Data Portability ---
Author Organization CHANTAL ESPARZA MD [facility], Main Office Address [address] [place] [address] Assessment No assessment recorded. Plan of Treatment Reminders Order Date Submit Date Provider Last Modified By Organization Details Last Modified Time Details Appointments None recorded. Lab miguel-bar r virus (EBV) DNA, quant, PCR, blood 2023 024 [email or web address] [facility] (Centralized Electronic Ordering - All Locations), Patient Can Go To The Location Of Their Choice, 11:23:38 borrelia burgdorferi IgG + IgM + total panel, IA, serum 2023 024 [email or web address] [facility] (Centralized [facility] Ordering - All Locations), Patient Can Go To The Location Of Their Choice, 13:40:29 unlisted lab - babesi(IgG/ M)+ehrlichi a 2023 024 [email or web address] [facility] (Centralized [facility] Ordering - All Locations), Patient Can Go To The Location Of Their Choice, 13:40:29 anaplasma phagocytoph ilum (hga/hge) igg+igm Ab, serum 2023 024 [email or web address] [facility] (Centralized [facility] Ordering - All Locations), Patient Can Go To The Location Of Their Choice, 13:40:29 heterophile Ab, qualitative latex agglutinati on, serum 2023 024 [email or web address] [facility] ([facility]ized [facility] Ordering - All Locations), Patient Can Go To The Location Of Their Choice, 13:40:29 TSH + free T4, serum 2023 024 [email or web address] [facility] ([facility] Ordering - All Locations), Patient Can Go To The Location Of Their Choice, [id number] 13:40:29 HbA1c (hemoglobin A1c), blood 2023 024 [email or web address] [facility] ([facility]ized [facility] Ordering - All Locations), Patient Can Go To The Location Of Their Choice, [id number] 13:40:29 Hepatitis C IgG Ab, qual, serum 2023 024 [email or web address] [facility] ([facility] Ordering - All Locations), Patient Can Go To The Location Of Their Choice, 13:40:29 HBsAg (hepatitis B surface Ag), EIA, serum 2023 024 [email or web address] [facility] ([facility]ized [facility] Ordering - All Locations), Patient Can Go To The Location Of Their Choice, [id number] 13:40:29 HIV 1 + 2, meaningful use set 2023 024 [email or web address] [facility] ([facility] Ordering - All Locations), Patient Can Go To The Location Of Their Choice, [id number] 13:40:30 RPR (rapid plasma reagin), serum 2023 024 [email or web address] [facility] ([facility] Ordering - All Locations), Patient Can Go To The Location Of Their Choice, [id number] 13:40:30 CBC w/ auto diff 2023 024 [email or web address] [facility] ([facility] Ordering - All Locations), Patient Can Go To The Location Of Their Choice, 13:40:30 CMP, serum or plasma 2023 024 [email or web address] [facility] ([facility] Ordering - All Locations), Patient Can Go To The Location Of Their Choice, 13:40:30 Referral None recorded. Procedures None recorded. Surgeries None recorded. Imaging None recorded. Medication Orders Senokot-S 8.6 mg-50 mg tablet [id number] [facility] #[id number], [address] [place], [address], 15:28:39 nystatin 100,000 unit/gram topical powder 2023 [id number] [address] [place], [address], 15:28:36 Daily Multi-Vitam in tablet 2023 [facility] #[id number], [address] [place], [address], 15:39:12 nystatin 100,000 unit/gram topical powder 2023 [id number] [address] [place], [address], 16:51:12 Patient TargetsNo targets recorded. Patient InstructionsNo instructions recorded. Reason for Referral None Reported. Results Created Date Observation Date Name Description Value Unit Range Abnormal Flag Note LastModifiedBy Organization Detail LastModifiedTime 11/26/1911/26/2023 BABES I(IGG /M)+E HRLIC HIA result comment: Commen t Diagn osis of acute babes iosis canno t be confi rmed solel y by the prese nce of antib jorge in a serum sampl e colle cted at a singl e time point . Babes ia micro ti (B. micro ti) IgG antib jorge titer s >=1:1 024 and/o r a posit carlene B. micro ti IgM antib jorge IFA resul t are sugge stive of activ e or recen t B. micro ti infec tion. PCR or perip heral blood smear shoul d be consi dered to confi rm acute infec tion. Not Available [facility] ([facility]) [address] [facility], [place], [address], 11/30/2023 16:06:44 11/26/19 24 11/26/2023 BABES I(IGG /M)+E HRLIC HIA result comment: Commen t Antib jogre titer s may be negat carlene in the first 7-10 days of illne ss. A four- fold rise in IgG antib jorge titer s for Anapl asma phago cytop hilum and/o r Ehrli gene chaff eensi s in paire d sampl es (acut e and conva lesce nt) suppo rts the diagn osis of anapl asmos is and/o r ehrli chios is, respe ctive ly. Not Available [facility] ([facility]) [address] [place], [address], 11/30/2023 16:06:44 11/26/19 24 11/30/2023 BABES I(IGG /M)+E HRLIC HIA babesia microti IgG <1:10 neg:<1 :10 Not Available [facility] ([facility]) [address] [place], [address], 11/30/2023 16:06:44 11/26/19 24 11/30/2023 BABES I(IGG /M)+E HRLIC HIA babesia microti IgM <1:10 neg:<1 :10 Not Available [facility] ([facility]) [address] [place], [address], 11/30/2023 16:06:44 11/26/19 24 11/30/2023 BABES I(IGG /M)+E HRLIC HIA E. chaffeensis IgG Negati ve neg:<1 :64 Not Available [facility] ([facility]) [address] [place], [address], 11/30/2023 16:06:44 11/26/19 24 11/30/2023 BABES I(IGG /M)+E HRLIC HIA E. chaffeensis IgM Negati ve neg:<1 :20 Not Available [facility] ([facility]) [address] [place], [address], 11/30/2023 16:06:44 11/26/19 24 11/30/2023 BABES I(IGG /M)+E HRLIC HIA A. phagocytophi lum IgG Negati ve neg:<1 :64 Not Available [facility] ([facility]) [address] [facility], [place], [address], 11/30/2023 16:06:44 11/26/19 24 11/30/2023 BABES I(IGG /M)+E HRLIC HIA A. phagocytophi lum IgM Negati ve neg:<1 :20 Due to a reage nt backo rder, this test was perfo rmed using a diffe rent assay . The refer ence inter michelle for this alter coral assay is: Negat carlene <1:64 Posit carlene 1:64 or great er Not Available [facility] ([facility]) [address] [facility], [place], [address], 11/30/2023 16:06:44 11/26/19 24 11/27/2023 TSH+F REE T4 TSH 2.190 uIU/m L 0.450- 4.500 normal Not Available [facility] ([facility]) [address] [place], [address], 11/30/2023 16:06:45 11/26/19 24 11/27/2023 TSH+F REE T4 T4,free(dire ct) 1.04 NG/dL 0.82-1 .77 normal Not Available [facility] ([facility]) [address] [place], [address], 11/30/2023 16:06:45 11/26/19 24 11/27/2023 CBC WITH DIFFE RENTI AL/PL ATELE T WBC 6.5 x10e3 /uL 3.4-10 .8 normal Not Available [facility] ([facility]) [address] [place], [address], 11/30/2023 16:06:46 11/26/19 24 11/27/2023 CBC WITH DIFFE RENTI AL/PL ATELE T RBC 4.84 x10e6 /uL 4.14-5 .80 normal Not Available [facility] ([facility]) [address] [facility], [place], [address], 11/30/2023 16:06:46 11/26/19 24 11/27/2023 CBC WITH DIFFE RENTI AL/PL ATELE T hemoglobin 13.9 g/dL 13.0-1 7.7 normal Not Available [facility] ([facility]) [address] [place], [address], 11/30/2023 16:06:46 11/26/19 24 11/27/2023 CBC WITH DIFFE RENTI AL/PL ATELE T hematocrit 43.2 % 37.5-5 1.0 normal Not Available [facility] ([facility]) [address] [place], [address], 11/30/2023 16:06:46 11/26/19 24 11/27/2023 CBC WITH DIFFE RENTI AL/PL ATELE T MCV 89 fL 79-97 normal Not Available [facility] ([facility]) [address] [place], [address], 11/30/2023 16:06:46 11/26/19 24 11/27/2023 CBC WITH DIFFE RENTI AL/PL ATELE T MCH 28.7 pg 26.6-3 3.0 normal Not Available [facility] ([facility]) [address] [place], [address], 11/30/2023 16:06:46 11/26/19 24 11/27/2023 CBC WITH DIFFE RENTI AL/PL ATELE T MCHC 32.2 g/dL 31.5-3 5.7 normal Not Available [facility] ([facility]) [address] [place], [address], 11/30/2023 16:06:46 11/26/19 24 11/27/2023 CBC WITH DIFFE RENTI AL/PL ATELE T RDW 12.8 % 11.6-1 5.4 Not Available [facility] ([facility]) [address] [facility], [place], [address], 11/30/2023 16:06:46 11/26/19 24 11/27/2023 CBC WITH DIFFE RENTI AL/PL ATELE T platelets 277 x10e3 /uL 150-45 0 normal Not Available [facility] ([facility]) [address] [facility], [place], [address], 11/30/2023 16:06:46 11/26/19 24 11/27/2023 CBC WITH DIFFE RENTI AL/PL ATELE T neutrophils 64 % not estab. normal Not Available [facility] ([facility]) [address] [facility], [place], [address], 11/30/2023 16:06:46 11/26/19 24 11/27/2023 CBC WITH DIFFE RENTI AL/PL ATELE T lymphs 23 % not estab. normal Not Available [facility] ([facility]) [address] [facility], [place], [address], 11/30/2023 16:06:46 11/26/19 24 11/27/2023 CBC WITH DIFFE RENTI AL/PL ATELE T monocytes 9 % not estab. normal Not Available [facility] ([facility]) [address] [facility], [place], [address], 11/30/2023 16:06:46 11/26/19 24 11/27/2023 CBC WITH DIFFE RENTI AL/PL ATELE T eos 3 % not estab. normal Not Available [facility] ([facility]) [address] [facility], [place], [address], 11/30/2023 16:06:46 11/26/19 24 11/27/2023 CBC WITH DIFFE RENTI AL/PL ATELE T basos 1 % not estab. normal Not Available [facility] ([facility]) [address] [place], [address], 11/30/2023 16:06:46 11/26/19 24 11/27/2023 CBC WITH DIFFE RENTI AL/PL ATELE T immature cells AIR CONDITIONING TECHNICIAN Not Available [facility] ([facility]) [address] [facility], [place], [address], 11/30/2023 16:06:46 11/26/19 24 11/27/2023 CBC WITH DIFFE RENTI AL/PL ATELE T neutrophils (absolute) 4.2 x10e3 /uL 1.4-7. 0 normal Not Available [facility] ([facility]) [address] [place], [address], 11/30/2023 16:06:46 11/26/19 24 11/27/2023 CBC WITH DIFFE RENTI AL/PL ATELE T lymphs (absolute) 1.5 x10e3 /uL 0.7-3. 1 normal Not Available [facility] ([facility]) [address] [place], [address], 11/30/2023 16:06:46 11/26/19 24 11/27/2023 CBC WITH DIFFE RENTI AL/PL ATELE T monocytes(ab solute) 0.6 x10e3 /uL 0.1-0. 9 normal Not Available [facility] ([facility]) [address] [place], [address], 11/30/2023 16:06:46 11/26/19 24 11/27/2023 CBC WITH DIFFE RENTI AL/PL ATELE T eos (absolute) 0.2 x10e3 /uL 0.0-0. 4 normal Not Available [facility] ([facility]) [address] [place], [address], 11/30/2023 16:06:46 11/26/19 24 11/27/2023 CBC WITH DIFFE RENTI AL/PL ATELE T baso (absolute) 0.0 x10e3 /uL 0.0-0. 2 normal Not Available [facility] ([facility]) [address] [facility], [place], [address], 11/30/2023 16:06:46 11/26/19 24 11/27/2023 CBC WITH DIFFE RENTI AL/PL ATELE T immature granulocytes 0 % not estab. Not Available [facility] ([facility]) [address] [facility], [place], [address], 11/30/2023 16:06:46 11/26/19 24 11/27/2023 CBC WITH DIFFE RENTI AL/PL ATELE T immature grans (abs) 0.0 x10e3 /uL 0.0-0. 1 Not Available [facility] ([facility]) [address] [facility], [place], [address], 11/30/2023 16:06:46 11/26/19 24 11/27/2023 CBC WITH DIFFE RENTI AL/PL ATELE T NRBC AIR CONDITIONING TECHNICIAN Not Available [facility] ([facility]) [address] [facility], [place], [address], 11/30/2023 16:06:46 11/26/19 24 11/27/2023 CBC WITH DIFFE RENTI AL/PL ATELE T hematology comments: AIR CONDITIONING TECHNICIAN Not Available [facility] ([facility]) [address] [facility], [place], [address], 11/30/2023 16:06:46 11/26/19 24 11/27/2023 COMP. METAB OLIC PANEL (14) glucose 88 mg/dL 70-99 normal Not Available [facility] ([facility]) [address] [facility], [place], [address], 11/30/2023 16:06:46 11/26/19 24 11/27/2023 COMP. METAB OLIC PANEL (14) BUN 24 mg/dL 8-27 normal Not Available [facility] ([facility]) [address] [facility] [place], [address], 11/30/2023 16:06:46 11/26/19 24 11/27/2023 COMP. METAB OLIC PANEL (14) creatinine 0.95 mg/dL 0.76-1 .27 normal Not Available [facility] ([facility]) [address] [facility] [place], [address], 11/30/2023 16:06:46 11/26/19 24 11/27/2023 COMP. METAB OLIC PANEL (14) eGFR 83 mL/mi n/1.7 3 >59 normal Not Available [facility] ([facility]) [address] [facility] [place], [address], 11/30/2023 16:06:46 11/26/19 24 11/27/2023 COMP. METAB OLIC PANEL (14) BUN/creatini ne ratio 25 10-24 above high normal Not Available [facility] ([facility]) [address] [facility] [place], [address], 11/30/2023 16:06:46 11/26/19 24 11/27/2023 COMP. METAB OLIC PANEL (14) sodium 143 mmol/ L 134-14 4 normal Not Available [facility] ([facility]) [address] [facility] [place], [address], 11/30/2023 16:06:46 11/26/19 24 11/27/2023 COMP. METAB OLIC PANEL (14) potassium 5.0 mmol/ L 3.5-5. 2 normal Not Available [facility] ([facility]) [address] [place], [address], 11/30/2023 16:06:46 11/26/19 24 11/27/2023 COMP. METAB OLIC PANEL (14) chloride 105 mmol/ L 96-106 normal Not Available [facility] ([facility]) [address] [facility] [place], [address], 11/30/2023 16:06:46 11/26/19 24 11/27/2023 COMP. METAB OLIC PANEL (14) carbon dioxide, total 24 mmol/ L 20-29 normal Not Available [facility] ([facility]) [address] [place], [address], 11/30/2023 16:06:46 11/26/19 24 11/27/2023 COMP. METAB OLIC PANEL (14) calcium 9.5 mg/dL 8.6-10 .2 normal Not Available [facility] ([facility]) [address] [facility] [place], [address], 11/30/2023 16:06:46 11/26/19 24 11/27/2023 COMP. METAB OLIC PANEL (14) protein, total 6.4 g/dL 6.0-8. 5 normal Not Available [facility] ([facility]) [address] [facility] [place], [address], 11/30/2023 16:06:46 11/26/19 24 11/27/2023 COMP. METAB OLIC PANEL (14) albumin 4.1 g/dL 3.8-4. 8 normal Not Available [facility] ([facility]) [address] [facility] [place], [address], 11/30/2023 16:06:46 11/26/19 24 11/27/2023 COMP. METAB OLIC PANEL (14) globulin, total 2.3 g/dL 1.5-4. 5 Not Available [facility] ([facility]) [address] [facility] [place], [address], 11/30/2023 16:06:46 11/26/19 24 11/27/2023 COMP. METAB OLIC PANEL (14) bilirubin, total 0.2 mg/dL 0.0-1. 2 normal Not Available [facility] ([facility]) [address] [facility], [place], [address], 11/30/2023 16:06:46 11/26/19 24 11/27/2023 COMP. METAB OLIC PANEL (14) alkaline phosphatase 112 IU/L 44-121 normal Not Available [facility] ([facility]) [address] [facility], [place], [address], 11/30/2023 16:06:46 11/26/19 24 11/27/2023 COMP. METAB OLIC PANEL (14) AST (SGOT) 23 IU/L 0-40 normal Not Available [facility] ([facility]) [address] [place], [address], 11/30/2023 16:06:46 11/26/19 24 11/27/2023 COMP. METAB OLIC PANEL (14) ALT (SGPT) 28 IU/L 0-44 normal Not Available [facility] ([facility]) [address] [facility], [place], [address], 11/30/2023 16:06:46 11/26/19 24 11/26/2023 ANAPL ASMA PHAGO CYTOP HILUM AB result comment: Commen t Anapl asma phago cytop hilum antib jorge titer s may be negat carlene in the first 7-10 days of illne ss. A four- fold rise in IgG antib jorge titer s in paire d sampl es (acut e and conva lesce nt) suppo rts the diagn osis of anapl asmos is. IgM antib odies are less speci fic than IgG antib odies and shoul d not be used alone for diagn osis. Not Available [facility] ([facility]) [address] [facility], [place], [address], 11/30/2023 16:06:47 11/26/19 24 11/27/2023 HCV ANTIB JORGE RFX TO QUANT PCR HCV Ab Non Reacti ve non reacti ve Not Available [facility] ([facility]) [address] [facility], [place], [address], 11/30/2023 16:06:47 11/26/19 24 11/27/2023 HCV ANTIB JORGE RFX TO QUANT PCR interpretati on: Commen t Not infec kay with HCV unles s early or acute infec tion is suspe cted (whic h may be delay ed in an immun ocomp romis ed indiv idual ), or other evide nce exist s to indic ate HCV infec tion. Not Available [facility] ([facility]) [address] [facility], [place], [address], 11/30/2023 16:06:47 11/26/19 24 11/27/2023 HEMOG LOBIN A1C hemoglobin A1C 6.4 % 4.8-5. 6 above high normal Predi abete s: 5.7 - 6.4 Diabe hadley: >6.4 Glyce lowell contr ol for adult s with diabe hadley: <7.0 Not Available [facility] ([facility]) [address] [facility], [place], [address], 11/30/2023 16:06:48 11/26/19 24 11/27/2023 RPR, RFX QN RPR/C ONFIR M TP RPR Non Reacti ve non reacti ve Not Available [facility] ([facility]) [address] [facility], [place], [address], 11/30/2023 16:06:48 11/26/19 24 11/27/2023 HIV AB/P2 4 AG WITH REFLE X HIV Ab/P24 Ag screen Non Reacti ve non reacti ve HIV-1 /HIV- 2 antib odies and HIV-1 p24 antig en were NOT detec kay. There is no labor atory evide nce of HIV infec tion. HIV Negat carlene Not Available [facility] ([facility]) [address] [facility], [place], [address], 11/30/2023 16:06:49 11/26/19 24 11/27/2023 LYME DISEA SE SEROL OGY W/REF LENIN lyme total antibody juanito Positi ve negati ve Evide nce of Lyme antib odies ; confi rmati on indic ated. See Lyme IgG and Lyme IgM resul ts (refl ex testi ng), and Lyme inter preta tion for final inter preta tion of the Lyme serol ogy refle x algor ithm. Not Available [facility] ([facility]) [address] [facility], [place], [address], 11/30/2023 16:06:49 11/26/19 24 11/27/2023 LYME DISEA SE SEROL OGY W/REF LENIN lyme IgG juanito Positi ve negati ve Not Available [facility] ([facility]) [address] [facility], [place], [address], 11/30/2023 16:06:49 11/26/19 24 11/27/2023 LYME DISEA SE SEROL OGY W/REF LENIN lyme IgM juanito Negati ve negati ve Not Available [facility] ([facility]) [address] [facility], [place], [address], 11/30/2023 16:06:49 11/26/19 24 11/27/2023 LYME DISEA SE SEROL OGY W/REF LENIN lyme interpretati on Lyme IgG Abs Detect ed abnormal Resul ts are consi stent with B. burgd orfer i infec tion (Lyme disea se) in the recen t or remot e past. IgG-c lass antib odies may remai n detec table for month s to years follo wing resol ution of infec tion. Resul ts shoul d not be used to monit or or estab kayla adequ ate respo nse to thera py. Respo nse to thera py is confi rmed throu gh resol ution of clini babak sympt oms; addit ional labor atory testi ng shoul d not be perfo rmed. If both tests are equiv ocal consi nima repea t testi ng in 7 to 14 days if clini neil warra nted. Not Available [facility] ([facility]) [address] [facility], [place], [address], 11/30/2023 16:06:49 11/26/19 24 11/27/2023 MONON UCLEO SIS, QUAL W/REF LENIN mononucleosi s test, qual Negati ve negati ve The sensi tivit y of Heter ophil e antib jorge testi ng is 80-90 %. Epste in Garcia IgM testi ng offer s highe r sensi tivit y. Not Available [facility] ([facility]) [address] [facility], [place], [address], 11/30/2023 16:06:50 11/26/19 24 11/27/2023 MONON UCLEO SIS, QUAL W/REF LENIN interpretati on: Commen t EBV Inter preta tion Chart Rea: Antib jorge Prese nt + Antib jorge Absen t - Inter preta tion VCA-I gM VCA-I gG EBNA- IgG No previ ous infec tion/ - - - Susce ptibl e Prima ry infec tion (new + + - or recen t) Past Infec tion +or- + + See comme nt below * + - - *Resu lts indic ate infec tion with EBV at some time howev er canno t predi ct the timin g of the infec tion since antib odies to EBNA usual ly devel op after prima ry infec tion or, alter nativ phil, appro ximat phil 5-10% of patie nts with EBV never devel op antib odies to EBNA. Not Available [facility] ([facility]) [address] [facility], [place], [address], 11/30/2023 16:06:50 11/26/19 24 11/29/2023 MONON UCLEO SIS, QUAL W/REF LENIN ebv Ab vca, IgM <36.0 U/mL 0.0-35 .9 Negat carlene <36.0 Equiv ocal 36.0 - 43.9 Posit carlene >43.9 Not Available [facility] ([facility]) [address] [facility], [place], [address], 11/30/2023 16:06:50 11/26/19 24 11/29/2023 MONON UCLEO SIS, QUAL W/REF LENIN ebv Ab vca, IgG >600.0 U/mL 0.0-17 .9 above high normal Negat carlene <18.0 Equiv ocal 18.0 - 21.9 Posit carlene >21.9 Not Available [facility] ([facility]) [address] [place], [address], 11/30/2023 16:06:50 11/26/19 24 11/29/2023 MONON UCLEO SIS, QUAL W/REF LENIN ebv nuclear antigen Ab, IgG 230.0 U/mL 0.0-17 .9 above high normal Negat carlene <18.0 Equiv ocal 18.0 - 21.9 Posit carlene >21.9 Not Available [facility] ([facility]) [address] [place], [address], 11/30/2023 16:06:50 11/26/19 24 11/27/2023 HBSAG SCREE N HBsAg screen Negati ve negati ve Not Available [facility] ([facility]) [address] [place], [address], 11/30/2023 16:06:50 09/02/19 25 09/01/2024 BABES I(IGG /M)+E HRLIC HIA result comment: Commen t Diagn osis of acute babes iosis canno t be confi rmed solel y by the prese nce of antib jorge in a serum sampl e colle cted at a singl e time point . Babes ia micro ti (B. micro ti) IgG antib jorge titer s >=1:1 024 and/o r a posit carlene B. micro ti IgM antib jorge IFA resul t are sugge stive of activ e or recen t B. micro ti infec tion. PCR or perip heral blood smear shoul d be consi dered to confi rm acute infec tion. Not Available [facility] ([facility]) [address] [place], [address], 09/05/2024 16:06:20 09/02/19 25 09/01/2024 BABES I(IGG /M)+E HRLIC HIA result comment: Commen t Antib jorge titer s may be negat carlene in the first 7-10 days of illne ss. A four- fold rise in IgG antib jorge titer s for Anapl asma phago cytop hilum and/o r Ehrli gene chaff eensi s in paire d sampl es (acut e and conva lesce nt) suppo rts the diagn osis of anapl asmos is and/o r ehrli chios is, respe ctive ly. Not Available [facility] ([facility]) [address] [place], [address], 09/05/2024 16:06:20 09/02/19 25 09/04/2024 BABES I(IGG /M)+E HRLIC HIA babesia microti IgG <1:10 neg:<1 :10 Not Available [facility] ([facility]) [address] [place], [address], 09/05/2024 16:06:20 09/02/19 25 09/04/2024 BABES I(IGG /M)+E HRLIC HIA babesia microti IgM <1:10 neg:<1 :10 Not Available [facility] ([facility]) [address] [place], [address], 09/05/2024 16:06:20 09/02/19 25 09/05/2024 BABES I(IGG /M)+E HRLIC HIA E. chaffeensis IgG Negati ve neg:<1 :64 Not Available [facility] ([facility]) [address] [place], [address], 09/05/2024 16:06:20 09/02/19 25 09/05/2024 BABES I(IGG /M)+E HRLIC HIA E. chaffeensis IgM Negati ve neg:<1 :20 Not Available [facility] ([facility]) [address] [place], [address], 09/05/2024 16:06:20 09/02/19 25 09/05/2024 BABES I(IGG /M)+E HRLIC HIA A. phagocytophi lum IgG Negati ve neg:<1 :64 Not Available [facility] ([facility]) [address] [facility], [place], [address], 09/05/2024 16:06:20 09/02/1909/05/2024 BABES I(IGG /M)+E HRLIC HIA A. phagocytophi lum IgM Negati ve neg:<1 :20 Due to a reage nt backo rder, this test was perfo rmed using a diffe rent assay . The refer ence inter michelle for this alter coral assay is: Negat carlene <1:64 Posit carlene 1:64 or great er Not Available [facility] ([facility]) [address] [place], [address], 09/05/2024 16:06:20 09/02/19 25 09/03/2024 TSH+F REE T4 TSH 1.880 uIU/m L 0.450- 4.500 normal Not Available [facility] ([facility]) [address] [place], [address], 09/05/2024 16:06:20 09/02/19 25 09/03/2024 TSH+F REE T4 T4,free(dire ct) 1.21 NG/dL 0.82-1 .77 normal Not Available [facility] ([facility]) [address] [place], [address], 09/05/2024 16:06:20 09/02/19 25 09/02/2024 CBC WITH DIFFE RENTI AL/PL ATELE T WBC 7.6 x10e3 /uL 3.4-10 .8 normal Not Available [facility] ([facility]) [address] [place], [address], 09/05/2024 16:06:21 09/02/19 25 09/02/2024 CBC WITH DIFFE RENTI AL/PL ATELE T RBC 5.15 x10e6 /uL 4.14-5 .80 normal Not Available [facility] ([facility]) [address] [place], [address], 09/05/2024 16:06:21 09/02/19 25 09/02/2024 CBC WITH DIFFE RENTI AL/PL ATELE T hemoglobin 14.9 g/dL 13.0-1 7.7 normal Not Available [facility] ([facility]) [address] [place], [address], 09/05/2024 16:06:21 09/02/19 25 09/02/2024 CBC WITH DIFFE RENTI AL/PL ATELE T hematocrit 44.1 % 37.5-5 1.0 normal Not Available [facility] ([facility]) [address] [place], [address], 09/05/2024 16:06:21 09/02/19 25 09/02/2024 CBC WITH DIFFE RENTI AL/PL ATELE T MCV 86 fL 79-97 normal Not Available [facility] ([facility]) [address] [place], [address], 09/05/2024 16:06:21 09/02/19 25 09/02/2024 CBC WITH DIFFE RENTI AL/PL ATELE T MCH 28.9 pg 26.6-3 3.0 normal Not Available [facility] ([facility]) [address] [place], [address], 09/05/2024 16:06:21 09/02/19 25 09/02/2024 CBC WITH DIFFE RENTI AL/PL ATELE T MCHC 33.8 g/dL 31.5-3 5.7 normal Not Available [facility] ([facility]) [address] [facility], [place], [address], 09/05/2024 16:06:21 09/02/19 25 09/02/2024 CBC WITH DIFFE RENTI AL/PL ATELE T RDW 13.3 % 11.6-1 5.4 Not Available [facility] ([facility]) [address] [facility], [place], [address], 09/05/2024 16:06:21 09/02/19 25 09/02/2024 CBC WITH DIFFE RENTI AL/PL ATELE T platelets 287 x10e3 /uL 150-45 0 normal Not Available [facility] ([facility]) [address] [facility], [place], [address], 09/05/2024 16:06:21 09/02/19 25 09/02/2024 CBC WITH DIFFE RENTI AL/PL ATELE T neutrophils 66 % not estab. normal Not Available [facility] ([facility]) [address] [facility], [place], [address], 09/05/2024 16:06:21 09/02/19 25 09/02/2024 CBC WITH DIFFE RENTI AL/PL ATELE T lymphs 23 % not estab. normal Not Available [facility] ([facility]) [address] [facility], [place], [address], 09/05/2024 16:06:21 09/02/19 25 09/02/2024 CBC WITH DIFFE RENTI AL/PL ATELE T monocytes 8 % not estab. normal Not Available [facility] ([facility]) [address] [facility], [place], [address], 09/05/2024 16:06:21 09/02/19 25 09/02/2024 CBC WITH DIFFE RENTI AL/PL ATELE T eos 2 % not estab. normal Not Available [facility] ([facility]) [address] [facility], [place], [address], 09/05/2024 16:06:21 09/02/19 25 09/02/2024 CBC WITH DIFFE RENTI AL/PL ATELE T basos 1 % not estab. normal Not Available [facility] ([facility]) [address] [facility], [place], [address], 09/05/2024 16:06:21 09/02/19 25 09/02/2024 CBC WITH DIFFE RENTI AL/PL ATELE T immature cells AIR CONDITIONING TECHNICIAN Not Available [facility] ([facility]) [address] [facility], [place], [address], 09/05/2024 16:06:21 09/02/19 25 09/02/2024 CBC WITH DIFFE RENTI AL/PL ATELE T neutrophils (absolute) 5.0 x10e3 /uL 1.4-7. 0 normal Not Available [facility] ([facility]) [address] [place], [address], 09/05/2024 16:06:21 09/02/19 25 09/02/2024 CBC WITH DIFFE RENTI AL/PL ATELE T lymphs (absolute) 1.8 x10e3 /uL 0.7-3. 1 normal Not Available [facility] ([facility]) [address] [place], [address], 09/05/2024 16:06:21 09/02/19 25 09/02/2024 CBC WITH DIFFE RENTI AL/PL ATELE T monocytes(ab solute) 0.6 x10e3 /uL 0.1-0. 9 normal Not Available [facility] ([facility]) [address] [place], [address], 09/05/2024 16:06:21 09/02/19 25 09/02/2024 CBC WITH DIFFE RENTI AL/PL ATELE T eos (absolute) 0.2 x10e3 /uL 0.0-0. 4 normal Not Available [facility] ([facility]) [address] [facility], [place], [address], 09/05/2024 16:06:21 09/02/19 25 09/02/2024 CBC WITH DIFFE RENTI AL/PL ATELE T baso (absolute) 0.1 x10e3 /uL 0.0-0. 2 normal Not Available [facility] ([facility]) [address] [facility], [place], [address], 09/05/2024 16:06:21 09/02/19 25 09/02/2024 CBC WITH DIFFE RENTI AL/PL ATELE T immature granulocytes 0 % not estab. Not Available [facility] ([facility]) [address] [facility], [place], [address], 09/05/2024 16:06:21 09/02/19 25 09/02/2024 CBC WITH DIFFE RENTI AL/PL ATELE T immature grans (abs) 0.0 x10e3 /uL 0.0-0. 1 Not Available [facility] ([facility]) [address] [facility], [place], [address], 09/05/2024 16:06:21 09/02/19 25 09/02/2024 CBC WITH DIFFE RENTI AL/PL ATELE T NRBC AIR CONDITIONING TECHNICIAN Not Available [facility] ([facility]) [address] [facility], [place], [address], 09/05/2024 16:06:21 09/02/19 25 09/02/2024 CBC WITH DIFFE RENTI AL/PL ATELE T hematology comments: AIR CONDITIONING TECHNICIAN Not Available [facility] ([facility]) [address] [facility], [place], [address], 09/05/2024 16:06:21 09/02/19 25 09/03/2024 COMP. METAB OLIC PANEL (14) glucose 87 mg/dL 70-99 normal Not Available [facility] ([facility]) [address] [facility] [place], [address], 09/05/2024 16:06:21 09/02/19 25 09/03/2024 COMP. METAB OLIC PANEL (14) BUN 22 mg/dL 8-27 normal Not Available [facility] ([facility]) [address] [facility] [place], [address], 09/05/2024 16:06:21 09/02/19 25 09/03/2024 COMP. METAB OLIC PANEL (14) creatinine 0.90 mg/dL 0.76-1 .27 normal Not Available [facility] ([facility]) [address] [facility] [place], [address], 09/05/2024 16:06:21 09/02/19 25 09/03/2024 COMP. METAB OLIC PANEL (14) eGFR 89 mL/mi n/1.7 3 >59 normal Not Available [facility] ([facility]) [address] [facility] [place], [address], 09/05/2024 16:06:21 09/02/19 25 09/03/2024 COMP. METAB OLIC PANEL (14) BUN/creatini ne ratio 24 10-24 normal Not Available [facility] ([facility]) [address] [facility] [place], [address], 09/05/2024 16:06:21 09/02/19 25 09/03/2024 COMP. METAB OLIC PANEL (14) sodium 141 mmol/ L 134-14 4 normal Not Available [facility] ([facility]) [address] [facility] [place], [address], 09/05/2024 16:06:21 09/02/19 25 09/03/2024 COMP. METAB OLIC PANEL (14) potassium 4.3 mmol/ L 3.5-5. 2 normal Not Available [facility] ([facility]) [address] [facility] [place], [address], 09/05/2024 16:06:21 09/02/19 25 09/03/2024 COMP. METAB OLIC PANEL (14) chloride 104 mmol/ L 96-106 normal Not Available [facility] ([facility]) [address] [place], [address], 09/05/2024 16:06:21 09/02/19 25 09/03/2024 COMP. METAB OLIC PANEL (14) carbon dioxide, total 21 mmol/ L 20-29 normal Not Available [facility] ([facility]) [address] [facility] [place], [address], 09/05/2024 16:06:21 09/02/19 25 09/03/2024 COMP. METAB OLIC PANEL (14) calcium 10.1 mg/dL 8.6-10 .2 normal Not Available [facility] ([facility]) [address] [facility] [place], [address], 09/05/2024 16:06:21 09/02/19 25 09/03/2024 COMP. METAB OLIC PANEL (14) protein, total 7.4 g/dL 6.0-8. 5 normal Not Available [facility] ([facility]) [address] [facility] [place], [address], 09/05/2024 16:06:21 09/02/19 25 09/03/2024 COMP. METAB OLIC PANEL (14) albumin 4.7 g/dL 3.8-4. 8 normal Not Available [facility] ([facility]) [address] [facility] [place], [address], 09/05/2024 16:06:21 09/02/19 25 09/03/2024 COMP. METAB OLIC PANEL (14) globulin, total 2.7 g/dL 1.5-4. 5 Not Available [facility] ([facility]) [address] [facility] [place], [address], 09/05/2024 16:06:21 09/02/19 25 09/03/2024 COMP. METAB OLIC PANEL (14) bilirubin, total 0.2 mg/dL 0.0-1. 2 normal Not Available [facility] ([facility]) [address] [place], [address], 09/05/2024 16:06:21 09/02/19 25 09/03/2024 COMP. METAB OLIC PANEL (14) alkaline phosphatase 134 IU/L 44-121 above high normal Not Available [facility] ([facility]) [address] [facility], [place], [address], 09/05/2024 16:06:21 09/02/19 25 09/03/2024 COMP. METAB OLIC PANEL (14) AST (SGOT) 21 IU/L 0-40 normal Not Available [facility] ([facility]) [address] [place], [address], 09/05/2024 16:06:21 09/02/19 25 09/03/2024 COMP. METAB OLIC PANEL (14) ALT (SGPT) 22 IU/L 0-44 normal Not Available [facility] ([facility]) [address] [facility], [place], [address], 09/05/2024 16:06:21 09/02/19 25 09/01/2024 ANAPL ASMA PHAGO CYTOP HILUM AB result comment: Commen t Anapl asma phago cytop hilum antib jorge titer s may be negat carlene in the first 7-10 days of illne ss. A four- fold rise in IgG antib jorge titer s in paire d sampl es (acut e and conva lesce nt) suppo rts the diagn osis of anapl asmos is. IgM antib odies are less speci fic than IgG antib odies and shoul d not be used alone for diagn osis. Not Available [facility] ([facility]) [address] [place], [address], 09/05/2024 16:06:22 09/02/1909/04/2024 EBV PCR QUANT (WHOL E BLOOD ) ebv PCR quant(whole blood) 410 copie s/mL negati ve The quant itati ve range of this assay is 100 to 1 amina on copie s/mL. Not Available [facility] ([facility]) [address] [facility], [place], [address], 09/05/2024 16:06:22 09/02/19 25 09/04/2024 EBV PCR QUANT (WHOL E BLOOD ) log10 ebv DNA qn PCR 2.613 log10 copy/ mL Not Available [facility] ([facility]) [address] [place], [address], 09/05/2024 16:06:22 09/02/1909/02/2024 HCV ANTIB JORGE RFX TO QUANT PCR HCV Ab Non Reacti ve non reacti ve Not Available [facility] ([facility]) [address] [facility], [place], [address], 09/05/2024 16:06:23 09/02/19 25 09/02/2024 HCV ANTIB JORGE RFX TO QUANT PCR interpretati on: Commen t Not infec kay with HCV unles s early or acute infec tion is suspe cted (whic h may be delay ed in an immun ocomp romis ed indiv idual ), or other evide nce exist s to indic ate HCV infec tion. Not Available [facility] ([facility]) [address] [facility], [place], [address], 09/05/2024 16:06:23 09/02/1909/02/2024 HEMOG LOBIN A1C hemoglobin A1C 6.6 % 4.8-5. 6 above high normal Predi abete s: 5.7 - 6.4 Diabe hadley: >6.4 Glyce lowell contr ol for adult s with diabe hadley: <7.0 Not Available [facility] ([facility]) [address] [place], [address], 09/05/2024 16:06:24 09/02/19 25 09/02/2024 RPR, RFX QN RPR/C ONFIR M TP RPR Non Reacti ve non reacti ve Not Available [facility] ([facility]) [address] [place], [address], 09/05/2024 16:06:24 09/02/19 25 09/02/2024 HIV AB/P2 4 AG WITH REFLE X HIV Ab/P24 Ag screen Non Reacti ve non reacti ve HIV-1 /HIV- 2 antib odies and HIV-1 p24 antig en were NOT detec kay. There is no labor atory evide nce of HIV infec tion. HIV Negat carlene Not Available [facility] ([facility]) [address] [facility], [place], [address], 09/05/2024 16:06:25 09/02/19 25 09/02/2024 LYME DISEA SE SEROL OGY W/REF LENIN lyme total antibody juanito Positi ve negati ve Evide nce of Lyme antib odies ; confi rmati on indic ated. See Lyme IgG and Lyme IgM resul ts (refl ex testi ng), and Lyme inter preta tion for final inter preta tion of the Lyme serol ogy refle x algor ithm. Not Available [facility] ([facility]) [address] [place], [address], 09/05/2024 16:06:25 09/02/19 25 09/02/2024 LYME DISEA SE SEROL OGY W/REF LENIN lyme IgG juanito Positi ve negati ve Not Available [facility] ([facility]) [address] [place], [address], 09/05/2024 16:06:25 09/02/19 25 09/02/2024 LYME DISEA SE SEROL OGY W/REF LENIN lyme IgM juanito Negati ve negati ve Not Available [facility] ([facility]) [address] [place], [address], 09/05/2024 16:06:25 09/02/19 25 09/02/2024 LYME DISEA SE SEROL OGY W/REF LENIN lyme interpretati on Lyme IgG Abs Detect ed abnormal Resul ts are consi stent with B. burgd orfer i infec tion (Lyme disea se) in the recen t or remot e past. IgG-c lass antib odies may remai n detec table for month s to years follo wing resol ution of infec tion. Resul ts shoul d not be used to monit or or estab kayla adequ ate respo nse to thera py. Respo nse to thera py is confi rmed throu gh resol ution of clini babak sympt oms; addit ional labor atory testi ng shoul d not be perfo rmed. If both tests are equiv ocal consi nima repea t testi ng in 7 to 14 days if clini neil warra nted. Not Available [facility] ([facility]) [address] [facility], [place], [address], 09/05/2024 16:06:25 09/02/19 25 09/02/2024 MONON UCLEO SIS, QUAL W/REF LENIN mononucleosi s test, qual Negati ve negati ve The sensi tivit y of Heter ophil e antib jorge testi ng is 80-90 %. Epste in Garcia IgM testi ng offer s highe r sensi tivit y. Not Available [facility] ([facility]) [address] [facility], [place], [address], 09/05/2024 16:06:26 09/02/19 25 09/02/2024 MONON UCLEO SIS, QUAL W/REF LENIN interpretati on: Commen t EBV Inter preta tion Chart Rea: Antib jorge Prese nt + Antib jorge Absen t - Inter preta tion VCA-I gM VCA-I gG EBNA- IgG No previ ous infec tion/ - - - Susce ptibl e Prima ry infec tion (new + + - or recen t) Past Infec tion +or- + + See comme nt below * + - - *Resu lts indic ate infec tion with EBV at some time rosalee er oracioo t predi ct the timin g of the infec tion since antib odies to EBNA usual ly devel op after prima ry infec tion or, alter nativ phil, appro ximat phil 5-10% of patie nts with EBV never devel op antib odies to [facility]. Not Available [facility] ([facility]) [address] [place], [address], 09/05/2024 16:06:26 09/02/19 25 09/05/2024 MONON UCLEO SIS, QUAL W/REF LENIN ebv Ab vca, IgM <36.0 U/mL 0.0-35 .9 Negat carlene <36.0 Equiv ocal 36.0 - 43.9 Posit carlene >43.9 Not Available [facility] ([facility]) [address] [place], [address], 09/05/2024 16:06:26 09/02/19 25 09/05/2024 MONON UCLEO SIS, QUAL W/REF LENIN ebv Ab vca, IgG >600.0 U/mL 0.0-17 .9 above high normal Negat carlene <18.0 Equiv ocal 18.0 - 21.9 Posit carlene >21.9 Not Available [facility] ([facility]) [address] [place], [address], 09/05/2024 16:06:26 09/02/19 25 09/05/2024 MONON UCLEO SIS, QUAL W/REF LENIN ebv nuclear antigen Ab, IgG 251.0 U/mL 0.0-17 .9 above high normal Negat carlene <18.0 Equiv ocal 18.0 - 21.9 Posit carlene >21.9 Not Available [facility] ([facility]) [address] [place], [address], 09/05/2024 16:06:26 09/02/19 25 09/02/2024 HBSAG SCREE N HBsAg screen Negati ve negati ve Not Available [facility] ([facility]) [address] [facility], [place], [address], 09/05/2024 16:06:26 11/28/19 25 02/17/2024 imagi ng/di agnos tic resul t No observ ation record ed. [email or web address] Not Available 2024 16:40:20 Result Notes None recorded. Medical Equipment None Reported. Medications Name Sig Start Date Stop Date Status Note LastModified by Organization Details LastModified Time amoxicillin 500 mg capsule TAKE 1 CAPSULE 3 TIMES A DAY UNTIL FINISHED active Not Available Not Available No t Available doxycycline hyclate 100 mg capsule TAKE 1 CAPSULE TWICE A DAY BY ORAL ROUTE FOR 28 DAYS, FOR LYME. active Not Available Not Available No t Available acetaminophe n 500 mg tablet TAKE 1 TABLET BY MOUTH EVERY 6 HOURS NEEDED FOR PAIN OR FEVER active Not Available Not Available No t Available diazepam 2 mg tablet TAKE 1 TABLET BY MOUTH TWICE DAILY TAKE ONLY DIRECTED. DO NOT DRIVE WHEN TAKING THIS MEDICATION active Not Available Not Available N ot Available nystatin 100,000 unit/gram topical cream APPLY TO AFFECTED AREA TWICE A DAY active Not Available Not Available No t Available nystatin 100,000 unit/gram topical powder APPLY TO THE AFFECTED AREA(S) BY TOPICAL ROUTE 2 TIMES PER DAY FOR 5-10 DAYS as NEEDE active Not Available Not Available No t Available ibuprofen 600 mg tablet active Not Available Not Available Not Available Daily Multi-Vitami n tablet Take 1 tablet by oral route for 30 days. 2023 active Not Available Not Available Not Avai lable cyclobenzapr ine 5 mg tablet active Not Available Not Available Not Available Senexon-S 8.6 mg-50 mg tablet TAKE 2 TABLETS EVERY DAY BY ORAL ROUTE, FOR CONSTIPATIO N. active Not Available Not Available No t Available Daily-Amadeo (with folic acid) 400 mcg tablet TAKE 1 TABLET BY MOUTH EVERY DAY active Not Available Not Available No t Available Vitals Date Recorded Body height Respiratory rate Body temperature Body mass index (BMI) Body weight Systolic And Diastolic Provider Name and Address Organization Details Last Updated DateTime 4 175.26 cm 10 /min 97.5 [degF] 25.1 kg/m2 83456.7 g 136/82 mm[Hg] Sharron LARA MD [facility] 15:46:14 Date Recorded Body height Provider Name an d Address Organization Details Last Updated DateTime 12/29/2023 175.26 cm Eleonora Lara MD [address] [place] [address], [id number], CHANTAL LARA MD [facility] 12/29/2023 15:24:42 Date Recorded Heart rate Respiratory rate Body temperature Body mass index (BMI) Body weight Oxygen saturation Oxygen saturation in Arterial blood by Pulse oximetry Systolic And Diastolic Provider Name and Address Organization Details Last Updated DateTime 50 /min 10 /min 97.8 [degF] 24.2 kg/m2 31971.1 5 g 97 % 97 % 136/66 mm[Hg] Sharron LARA MD [facility] 15:27:44 Social History None recorded. Functional Status None recorded. Mental Status None recorded. Family History Nothing Reported. Medical History No medical history recorded. Past Encounters Encounter ID Performer Location Encounter Start Date Encounter Closed Date Diagnosis/Indication Diagnosis SNOMED-CT Code Diagnosis ICD10 Code Diagnosis IMO Codes Diagnosis Note [id number] Eleonora Lara MD Main Office [address] [place] [phone] 11/22/2023 15:29:14 11/22/2023 16:34:53 Malaise and fatigue 079215602 R53.83 fatigue/ma laise/arth algia/khalida ryexposure to multiple tick bites/work exposuresw ill order labs as below to include LYme Disease/co -infection s, EBV among otherif negative infection workup, would then suggest Neurology eval for memory concerns.f /u 3 weeks or earlier based on labstick prevention reviewed w daily tick checks, long sleeves.Do xycycline could also be prevented if new tick exposure is identified f/u Urology in setting of Prostate cancer hx.plan of care reviewedqu estions and concerns addressed Intertrigo 52733121 L30. 4 probably fungal.randee id hydrocorti sonemicona zole cream x 7 days prnantifun gal powder prn as wellto call if develops new infection to obtain fungal/delroy terial swab [id number] Eleonora Lara MD Main Office [address] [place] [address] 12/29/2023 15:12:53 12/29/2023 15:40:15 Malaise and fatigue 341848808 R53.83 fatigueEBV VL PCR ordered in setting of serology suggesting past EBV Intertrigo 36090047 L30. 4 fungal. improved.a void hydrocorti soneantifu ngal powder prn as wellto call if develops new infection to obtain fungal/delroy terial swab Constipation 60960726 K5 9.00 hydrationi ncrease fiber Lyme disease 97039483 A6 9.20 pt will complete 21 days of Doxycyclin e 100mg po bid this week. Prediabetes 417508436 R7 3.03 HgAIc=6.4d iet/exerci sef/u PCPweight loss reviewed/ Health Concerns Section Related Observation LastModified by Organization Detai ls LastModified Time None Recorded Concern Status LastModified by Organization Details LastModified Time None Recorded Advance Directives Directive None Recorded Payers Insurance Date Sequence Insurance Name Policy Number Policy Craig Covered Member ID Craig Member ID Guarantor Name 12/26/2023 1 [facility] (MEDICARE REPLACEMENT/A DVANTAGE - PPO) [id number] Rodriguez Rudd [id number] Rodriguez Rudd Notes Date Note Type Note Provider Name and Address Organization Details Recorded Time 11/22/19 24 text/htm l ROS as noted in the HPI Male patient worried about Lyme Disease. 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 has noticed slow memory impairment; repeats same question multiple times because cannot recall answer, or that it was asked already. one yearjoint aches on hands; neck painno headache; no visual sx; no imbalancefatiguecolonoscopy uptodateno fever. no chills, no sweats; no changes in [id number] on 2019, but no other recollection of cold like sxno hx EBVno hepatitis hx; no HIV; no immune deficiencies; no rheumatologic concers; no DMno stroke nor Lory migraine nor headachesno drugspast ETOH and past smoker hx inguinal fungal itchi infections- recurrent; has used cream which help, but recurs Eleonora Lara MD [address] [place] [address], [phone], CHANTAL LARA MD [facility] 11/22/2023 16:52:43 12/29/19 24 text/htm l ROS as noted in the HPI Male patienthe will complete 21 days of Doxycycline 100mg po bid this week constipation. 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 has had constipation in the past; has been seen in ER for constipation tx.no headache; no visual sx; no imbalance fatigueno fever. no chills, no sweats; no changes in weightpast ETOH and past smokermoving head better. no skin rashjoint aches on hands;arthritisno headache; no visual sx; no imbalancecolonoscopy uptodate per his reportno fever. no chills, no sweats; no changes in weight11/2023 Lyme Igg WB pos; HBV neg; HIV neg; RPR NR; past EBV; prediabetes; co-infection panel neg ; TSH nl; AST/ALT wnl; eGFR Eleonora Lara MD [address] [place] [address], [phone], CHANTAL LARA MD [facility] 12/29/2023 17:14:00
--- OUTSIDE RECORDS SUMMARY | 2025-01-17 10:34 | XMS_ITS | Encounter Summary ---
Author Organization [facility] Address [address] [place] [address] Care Team Providers Care Director Security Management Name Role Phone Arleen Escalera APRN Primary Care Provider Adrianna YoungW Unavailable [phone] Pcp, No Primary Care Provider Unavailabl e Skyla Lynch APRN Primary Care Provider Skyla Lynch APRN Unavailable [phone] Daya Mayers RN Unavailable [phone] Pcp, No Primary Care Provider Unavailabl e Encounter Details Date Type Department Care Team (Late st Contact Info) Description 06/23/2019 Telephone [facility] Urologic Surgery [address] [place] [phone] Etelvina Elaine MA [address] [place] [phone] Social History Tobacco Use Types Packs/Day Years [...] last message. PCP is in [facility], all records from their office are in [facility]. -AL documented in this encounter Plan of Treatment Not on file documented as of this encounter Visit Diagnoses Not on filedocumented in this encounter Care Teams Director Security Management Relationship Specialty Start Date End Date Arleen Escalera APRN [address] [place] [address] PCP - General Internal Medicine 04/29/17 09/05/19 Pcp, No PCP - General General Medicine 09/07/19 09/07/19 Skyla Lynch APRN [address] [place] [address] PCP - General Internal Medicine 09/08/19 06/02/23 Skyla Lynch APRN [address] [place] [address] PCP - [employer] Attributed 10/01/20 08/16/24 Pcp, No PCP - General General Medicine 06/03/23 Adrianna Young, [facility] [address] [place] [address] ICP Community Egg CaserSenior Asic Design Engineer 05/11/19 03/02/21 Daya Mayers, RN [address] [facility] [address] [place] [address] ICP Community Egg Caser 03/03/21 documented as of this encounter
--- OUTSIDE RECORDS SUMMARY | 2025-01-17 10:34 | XMS_ITS | Encounter Summary ---
Author Organization [facility] Address [address] [place] [address] Care Team Providers Care Uke Operator Name Role Phone Adrianna Young ELECTRONIC ASSEMBLER Unavailable [phone] Skyla Lynch APRN Primary Care Provider [phone] Skyla Lynch APRN Unavailable [phone] Daya Mayers RN Unavailable [phone] Pcp, No Primary Care Provider Unavailabl e Encounter Details Date Type Department Care Team (Late st Contact Info) Description 11/06/2019 Scanned Document [facility] [address] [place] [phone] Carolin Chinchilla DO [address] [place], [place] [id number] Social History Tobacco Use Types Packs/Day Years [...] on filedocumented in this encounter Care Teams Uke Operator Relationship Specialty Start Date End Date Skyla Lynch APRN [address] [place] [address] PCP - General Internal Medicine 09/08/19 06/02/23 Skyla Lynch APRN [address] [place] [address] PCP - [employer] Attributed 10/01/20 08/16/24 Pcp, No PCP - General General Medicine 06/03/23 Adrianna Young, [facility] [address] [place] [address] ICP Community Art Framing ManagerAirplane Pilot Helper 05/11/19 03/02/21 Daya Mayers, RN [address] [facility] [address] [place] [address] ICP Community Art Framing Manager 03/03/21 documented as of this encounter
== END 2025-01-17 10:14 | disposition home or self-care (01) ==
LOC: HO.HSM 09:42
PROVIDERS: PCP Family Medicine; Visit Provider Psychiatry & Neurology Neurology
DX: F03.90 Unspecified dementia, unspecified severity, without behavioral disturbance, psychotic disturbance, mood disturbance, and anxiety (principal); I67.89 Other cerebrovascular disease
CPT/HCPCS: 99214

== ENCOUNTER → 2025-01-17 09:41 | Outpatient (BNVA) | payer OTHER, SELFPAY | PROVIDERS: PCP Family Medicine; Visit Provider Psychiatry & Neurology Neurology | DX: G30.9 Alzheimer's disease, unspecified (principal); I67.89 Other cerebrovascular disease | CPT/HCPCS: 99212 ==